=== PATIENT | male | born 1950 | race Caucasian/White ===

== ENCOUNTER 2020-03-10 08:12 | Inpatient (IN) | payer MEDICARE ==
--- NOTE | 2020-03-10 08:32 | RADIOLOGY REPORT (SQ) ---
EXAM DESCRIPTION: CT HEAD WITHOUT IMAGES COMPLETED DATE/TIME: 03/10/2020 8:22 am REASON FOR STUDY: STROKE PROTOCOL COMPARISON: None. TECHNIQUE: Axial images acquired through the brain without intravenous contrast. Images reviewed wi th bone, brain and subdural windows. Additional sagittal and coronal reconstructions were generated. Images stored on PACS. All CT scanners at this facility use dose modulation, iterative reconstruction, and/or weight based d osing when appropriate to reduce radiation dose to as low as reasonably achievable (ALARA). [facility]: Dose Right [facility]: CareDose [facility]: Dose Right [facility]: Teradose 4D [facility]: [employer] RADIATION DOSE: mGy. LIMITATIONS: None. FINDINGS: VENTRICLES: Prominent. CEREBRUM: No masses. No hemorrhage. No midline shift. Areas of low density in the white matter mos t likely due to chronic micro-vascular ischemic change. No evidence for acute infarction. CEREBELLUM: No masses. No hemorrhage. No alteration of density. No evidence for acute infarction. EXTRAAXIAL SPACES: Age-related involutional change. No fluid collections. No masses. ORBITS AND GLOBE: No intra- or extraconal masses. Normal contour of globe without masses. CALVARIUM: No fracture. PARANASAL SINUSES: No fluid or mucosal thickening. SOFT TISSUES: No mass or hematoma. OTHER: No other significant finding. IMPRESSION: CHRONIC CHANGES OF ATROPHY AND MICROVASCULAR ISCHEMIA. NO ACUTE PROCESS. EVIDENCE OF ACUTE STROKE: NO. COMMENT: Pertinent positive or negative findings of the imaging study reported as a CRITICAL EXAM [place] aguilar ESTEBAN CONNOLLY at08:25 on 03/10/2020. Category of Critical Exam: Stroke protocol. TECHNICAL DOCUMENTATION: JOB ID: [id number] Quality ID # [id number]: Final reports with documentation of one or more dose reduction techniques (e.g., Au tomated exposure control, adjustment of the mA and/or kV according to patient size, use of iterative reconstruction technique) 2010 [employer]- All Rights Reserved Reading location - IP/workstation name: [email or web address]
--- NOTE | 2020-03-10 08:33 | RADIOLOGY REPORT (SQ) ---
EXAM DESCRIPTION: CHEST SINGLE VIEW IMAGES COMPLETED DATE/TIME: 03/10/2020 8:22 am REASON FOR STUDY: STROKE COMPARISON: None. EXAM PARAMETERS: NUMBER OF VIEWS: One view. TECHNIQUE: Single frontal radiographic view of the chest acquired. RADIATION DOSE: NA LIMITATIONS: None. FINDINGS: LUNGS AND PLEURA: No opacities, masses or pneumothorax. No pleural effusion. MEDIASTINUM AND HILAR STRUCTURES: No masses. Contour normal. HEART AND VASCULAR STRUCTURES: Heart normal in size. Normal vasculature. BONES: No acute findings. HARDWARE: None in the chest. OTHER: No other significant finding. IMPRESSION: NO ACUTE RADIOGRAPHIC FINDING IN THE CHEST. TECHNICAL DOCUMENTATION: JOB ID: [id number] 2010 [employer]- All Rights Reserved Reading location - IP/workstation name: [email or web address]
--- NOTE | 2020-03-10 08:43 | EKG REPORT ---
SEVERITY:- BORDERLINE ECG - SINUS RHYTHM BORDERLINE RIGHT AXIS DEVIATION BORDERLINE T ABNORMALITIES, DIFFUSE LEADS : Confirmed by: Wendy Das MD 10-Mar-2020 08:43:06
[2020-03-10 08:44] LABS: INTERNATIONAL RATION (INR) 1.14
[2020-03-10 08:45] LABS: PARTIAL THROMBOPLASTIN TIME 34.9 SEC (23.5-35.8)
[2020-03-10 08:47] LABS: PROTHROMBIN TIME 14.7 SEC (11.4-15.4)
[2020-03-10 08:59] LABS: ABSOLUTE EOSINOPHILS # (AUTO) 0.1 10^3/uL (0.0-0.6); ABSOLUTE LYMPHOCYTES (AUTO) 1.2 10^3/uL (0.5-4.7); ABSOLUTE MONOCYTES (AUTO) 0.5 10^3/uL (0.1-1.4); BASOPHILS % (AUTO) 0.3 % (0-2); EOSINOPHILS % (AUTO) 0.6 % (0-6); HEMATOCRIT 46.3 % (37.9-51.0); HEMOGLOBIN 16.1 g/dL (13.5-17.0); LYMPHOCYTES % (AUTO) 11.3 % (13-45); MEAN CORPUSCULAR HEMOGLOBIN 28.7 pg (27.0-33.4); MEAN CORPUSCULAR HGB CONC 34.9 g/dL (32.0-36.0); MEAN CORPUSCULAR VOLUME 82 fl (80-97); MONOCYTES % (AUTO) 4.7 % (3-13); PLATELET COUNT 240 10^3/uL (150-450); RED BLOOD COUNT 5.62 10^6/uL (4.35-5.55); RED CELL DISTRIBUTION WIDTH 15.1 % (11.5-14.0); SEGMENTED NEUTROPHILS % (AUTO) 83.1 % (42-78); TOTAL CELLS COUNTED % (AUTO) 100 %; WHITE BLOOD COUNT 10.8 10^3/uL (4.0-10.5)
[2020-03-10 09:31] LABS: ALBUMIN 4.1 g/dL (3.5-5.0); ALKALINE PHOSPHATASE 66 U/L (38-126); ANION GAP 9 (5-19); ASPARTATE AMINO TRANSFERASE 51 U/L (17-59); BILIRUBIN,TOTAL 0.8 mg/dL (0.2-1.3); BLOOD UREA NITROGEN 22 mg/dL (7-20); CALCIUM 9.3 mg/dL (8.4-10.2); CARBON DIOXIDE 30 mmol/L (22-30); CHLORIDE 98 mmol/L (98-107); CREATINE KINASE 1043 U/L (55-170); GLUCOSE 270 mg/dL (75-110); POTASSIUM 4.2 mmol/L (3.6-5.0); TOTAL PROTEIN 7.1 g/dL (6.3-8.2)
[2020-03-10 09:40] LABS: CREATINE KINASE MB 7.15 ng/mL (<4.55)
[2020-03-10 09:41] LABS: TROPONIN I < 0.012 ng/mL
--- NOTE | 2020-03-10 10:22 | RADIOLOGY REPORT (SQ) ---
EXAM DESCRIPTION: CTA HEAD IMAGES COMPLETED DATE/TIME: 03/10/2020 10:04 am REASON FOR STUDY: acute stroke COMPARISON: None. TECHNIQUE: Post IV contrast scanning, thin section axial imaging through the brain to evaluate the a rterial structures. Source and MIP images are saved and reviewed on PACS. Advanced 3D imaging as volume-rendering, MIPs, SSD performed? yes All CT scanners at this facility use dose modulation, iterative reconstruction, and/or weight based d osing when appropriate to reduce radiation dose to as low as reasonably achievable (ALARA). [facility]: Dose Right [facility]: CareDose [facility]: Dose Right [facility]: Teradose 4D [facility]: [employer] CONTRAST TYPE AND DOSE: 70 mL Omnipaque 350- low osmolar. RENAL FUNCTION: BUN 22 creatinine 0.65. LIMITATIONS: None. FINDINGS: JENA OF ALVAREZ: There is focal narrowing of the proximal cavernous right internal caroti d artery as it exits the skull base. No occlusion. The anterior, middle, posterior cerebral arterie s are all patent. No evidence of aneurysm or focal stenosis. POSTERIOR CIRCULATION: The distal vertebral arteries are patent as is the basilar artery. No aneurysm . BRAIN: No gross enhancing lesions as visualized. The superior cerebral hemispheres are not included in the field of view. BONES: Intact as visualized. SINUSES: No fluid or mucosal thickening. OTHER: No other significant finding. IMPRESSION: FOCAL PLAQUE IN THE PROXIMAL CAVERNOUS RIGHT INTERNAL CAROTID ARTERY WITH LUMINAL NARROW ING BUT NO OCCLUSION. NO CTA EVIDENCE OF STENOSIS OR ANEURYSM OF THE JENA OF ALVAREZ. TECHNICAL DOCUMENTATION: JOB ID: [id number] Quality ID # [id number]: Final reports with documentation of one or more dose reduction techniques (e.g., Au tomated exposure control, adjustment of the mA and/or kV according to patient size, use of iterative reconstruction technique) 2010 [employer]- All Rights Reserved Reading location - IP/workstation name: [email or web address]
--- NOTE | 2020-03-10 10:24 | RADIOLOGY REPORT (SQ) ---
EXAM DESCRIPTION: CTA NECK IMAGES COMPLETED DATE/TIME: 03/10/2020 10:04 am REASON FOR STUDY: acute stroke COMPARISON: None. TECHNIQUE: Axial dynamic scanning technique with dynamic contrast enhancement through the extra-stock crane operator nial carotid and vertebral arteries. Multiplanar reconstruction. 3-D MIPS and Volume-rendered imag es acquired at the workstation and saved to PACS. Images are reviewed in soft tissue, bone, lung w indows. All CT scanners at this facility use dose modulation, iterative reconstruction, and/or weight based d osing when appropriate to reduce radiation dose to as low as reasonably achievable (ALARA). [facility]: Dose Right [facility]: CareDose [facility]: Dose Right [facility]: Teradose 4D [facility]: [employer] CONTRAST TYPE AND DOSE: contrast/concentration: Isovue 350.00 mg/ml; Total Contrast Delivered: 70.0 ml; Total Saline Delivered: 75.0 ml RENAL FUNCTION: BUN 22 creatinine 0.65. LIMITATIONS: None. FINDINGS: AORTIC ARCH: Normal three-vessel origin. Bilateral subclavian arteries are patent. No d issection. RIGHT CAROTIDS: Patent common, internal and external carotid arteries without suggestion of significa nt stenosis or irregular plaque. Mild calcification in the proximal internal carotid artery. No dis section. RIGHT VERTEBRAL: Patent. No dissection. LEFT CAROTIDS: Patent common, internal and external carotid arteries without suggestion of significan t stenosis or irregular plaque. Mild calcification in the proximal internal carotid artery. No diss ection. LEFT VERTEBRAL: Patent. No dissection. OTHER: No other significant finding. OTHER: 3-D reconstructions confirm findings. IMPRESSION: UNREMARKABLE CTA OF THE EXTRA-CRANIAL CAROTID AND VERTEBRAL ARTERIES. MILD CALCIFIED PL AQUE IN THE INTERNAL CAROTID ARTERIES WITH NO STENOSIS. COMMENT: Quality ID #[id number]: Measurements of distal internal carotid diameter were used as the denomina tor for stenosis measurement. TECHNICAL DOCUMENTATION: JOB ID: [id number] Quality ID # 436: Final reports with documentation of one or more dose reduction techniques (e.g., Au tomated exposure control, adjustment of the mA and/or kV according to patient size, use of iterative reconstruction technique) 2010 [employer]- All Rights Reserved Reading location - IP/workstation name: [email or web address]
[2020-03-10] MEDS ORDERED: ASPIRIN 325 MG TABLET PO ONE (10:38)
--- NOTE | 2020-03-10 10:42 | ER Document Report ---
Entered by SHAR WINKLER SCRIBE 03/10/20 0834 Acting as scribe for:ESTEBAN CONNOLLY DO ED Neuro Symptoms/Deficit - General Chief Complaint: S/S of Possible Stroke Stated Complaint: POSSIBLE STROKE Time Seen by Provider: 03/10/20 08:23 Mode of Arrival: Medic Information source: Patient, Emergency Med Personnel Cannot obtain history due to: Other - slurred speech, difficult to understand Notes: This 69 year old male patient presents to the emergency department today with complaints of a two day history of right sided weakness. The patient's last known well was 7:00 PM on 03/08/20. The patient's daughter had not heard from the patient since that evening so this morning she went to check on the patient and found him down on the floor, covered in urine. Patient has slurred speech, a right sided facial droop, and complete right sided hemiparesis. Patient denies any pain. - Related Data Allergies/Adverse Reactions: ibuprofen Allergy (Mild, Verified 03/10/20 08:32) Past Medical History - General Information source: Patient, Emergency Med Personnel - Social History Smoking Status: Smoker,Current Status Unk Frequency of alcohol use: None Drug Abuse: None Lives with: Alone Family History: Reviewed & Not Pertinent Endocrine Medical History: Reports: Hx Diabetes Mellitus Type 2 Surgical Hx: Negative Review of Systems - Review of Systems Constitutional: No symptoms reported EENT: No symptoms reported Cardiovascular: No symptoms reported Respiratory: No symptoms reported Gastrointestinal: No symptoms reported Genitourinary: No symptoms reported Male Genitourinary: No symptoms reported Musculoskeletal: No symptoms reported Skin: No symptoms reported Hematologic/Lymphatic: No symptoms reported Neurological/Psychological: See HPI, Weakness - right sided, Paralysis - right sided, Speech impairment -: Yes All other systems reviewed and negative Physical Exam - Notes Notes: Physical Exam: General: Alert, right sided hemiparesis, right sided facial droop, slurred speech. . HEENT: Normocephalic. Atraumatic. PERRL. Extraocular movements intact. Oropharynx clear. Neck: Supple. Non-tender. Respiratory: No respiratory distress. Clear and equal breath sounds bilaterally. Cardiovascular: Regular rate and rhythm. Abdominal: Normal Inspection. Non-tender. No distension. Normal Bowel Sounds. Back: No gross abnormalities. Extremities: does not move right upper or right lower extremities. Upper extremities: 5/5 left upper extremity strength. 0/5 right upper extremity strength. Lower extremities: 5/5 left lower extremity strength. 0/5 right lower extremity strength. Neurological: Right-sided hemiparesis. Slurred speech. Right sided facial droop. Alert and oriented x4. Psychological: Normal affect. Normal Mood. Skin: Warm. Dry. Normal color. Course - Re-evaluation Re-evalutation: 03/10/20 10:44 MDM 69 year old with CVA - right sided hemiparesis and speech difficulty. NIHSS 8 for me. While TPA was considered the pt is clearly out of the window for thrombolytics as his last known normal was approximately 36 hours ago. No fever or chest pain or sob. No rash. I have discussed with SAHIL Emmanuel and Dr. Faustin who has graciously agreed to see and evaluate for admission. - Laboratory Result Diagrams: 03/10/20 08:30 03/10/20 08:30 - Diagnostic Test Radiology reviewed: Reports reviewed - EKG Interpretation by Me EKG shows normal: Sinus rhythm Rate: Normal Rhythm: NSR - NSR Nl [place] [address] elevaiton or depression my interpretation. ED NIH Stroke Scale - NIH Stroke Scale *: 1. NIH scale should be completed with appropriate accompanying assessment tools. *: 2. The NIH should reflect what the patient is capable of doing and should not be coached by the clinician. 1a. Level of Consciousness: 0=Alert;keenly responsive -: 1=Drowsy -: 2=Obtunded -: 3=Coma/unresponsive or reflex to noxious stimuli. 1a. Responses: 0 1b. Orientation Questions: a. What month is it? -: b. How old are you? -: 0=Answers both questions correctly. -: 1=Answers one question correctly or patient is intubated or has orotracheal trauma. -: 2=Answers neither question correctly. 1b. Responses: 0 1c. Response to commands: a. Open and close eyes? -: b. Hod Carrier and release hand? -: Credit is given despite weakness. Demonstration of task is permitted. Substitute command if hands cannot be used. -: 0=Performs both tasks correctly -: 1=Performs one task correctly -: 2=Performs neither task correctly 1c. Responses: 0 2. Gaze: Establish eye contact and instruct patient to "Follow my finger" -: 0=Normal -: 1=Partial gaze palsy. Gaze is abnormal in one or both eyes, but where forced deviation or total gaze paresis is not present. -: 2=Forced deviation or total gaze paresis. 2. Responses: 0 3. Visual [place]: Sees fingers in all four quadrants. -: 0=No visual loss. -: 1=Partial hemianopsia. -: 2=Complete hemianopsia. -: 3=Bilateral hemianopsia (including Cortical blindness) 3. Responses: 0 4. Facial Movement: Instruct patient to: -: a. Show me your teeth -: b. Raise your eyebrows -: c. Close your eyes -: d. Smile -: 0=Normal symmetrical movement -: 1=Minor paralysis (flattened nasolabial fold, asymmetry on smiling). -: 2=Partial paralysis (total or near total paralysis of lower face). -: 3=Complete paralysis of upper and lower face 4. Responses: 1 5. Motor functions (left arm): Alternate sides and extend each arm with palms down (90 degrees if sitting or 45 degrees for supine). -: 0=No drift;limb holds for full 10 seconds. -: 1=Drift; limb holds but drifts down before full 10 seconds, but does not hit bed. -: 2=Some effort against gravity; limb cannot get to or maintain position. -: 3=No effort against gravity; limb falls. -: 4=No movement. -: UN=Amputation, joint fusion, explain in comments. 5. Responses (left arm): 0 5. Motor Functions (right arm): Alternate sides and extend each arm with palms down (90 degrees if sitting or 45 degrees for supine). -: 0=No drift;limb holds for full 10 seconds. -: 1=Drift; limb holds but drifts down before full 10 seconds, but does not hit bed. -: 2=Some effort against gravity; limb cannot get to or maintain position. -: 3=No effort against gravity; limb falls. -: 4=No movement. -: UN=Amputation, joint fusion, explain in comments. 5. Responses (right arm): 2 6. Motor Functions (left leg): With patient lying supine, alternate sides and extend each leg (30 degrees always while supine). -: 0=No drift, leg holds position for full 5 seconds -: 1=Drift; leg falls before full 5 seconds but does not hit bed. -: 2=Some effort against gravity, leg falls to bed but some effort against gravity. -: 3=No effort against gravity, leg falls to bed immediately. -: 4=No movement. -: UN=Amputation, joint fusion; explain in comments. 6. Responses (left leg): 0 6. Motor Functions (right leg): With patient lying supine, alternate sides and extend each leg (30 degrees always while supine). -: 0=No drift, leg holds position for full 5 seconds -: 1=Drift; leg falls before full 5 seconds but does not hit bed. -: 2=Some effort against gravity, leg falls to bed but some effort against gravity. -: 3=No effort against gravity, leg falls to bed immediately. -: 4=No movement. -: UN=Amputation, joint fusion; explain in comments. 6. Responses (right leg): 2 7. Limb Ataxia: With eyes open instruct patient to: -: a. "Touch your finger to your nose". -: b. "Touch your heel to your cifuentes" -: 0=Absent -: 1=Present in one limb. -: 2=Present in two limbs. -: UN=Amputation or joint fusion; explain in comments. 7. Responses: 2 8. Sensory: Test sensation using pinprick or noxious stimuli. Test as many body parts as possible. -: 0=Normal;no sensory loss -: 1=Mile to moderate sensory loss (patient feels pin prick but is less sharp on affected side). -: 2=Severe or total sensory loss. 8. Responses: 0 9. Best Language: Instruct patient to: -: a. "Describe what you see in this picture." -: b. "Name the items in this picture." -: c. "Read these sentences." -: 0=No aphasia, normal -: 1=Mild to moderate aphasia. -: 2=Severe aphasia -: 3=Mute, global aphasia, no usable speech or auditory comprehension. 9. Responses: 0 10. Articulation, Dysarthia: Instruct patient to: -: "Read these words" or "Repeat these words" -: 0=Normal -: 1=Mild to moderate; patient may slur some words but can be understood without difficulty. -: 2=Severe; patients speech so slurred as to be unintelligible in the absence of dysphasia. -: UN=Intubated or other physical barrier, explain in comments. 10. Responses: 1 11. Extinction or inattention: 0=No abnormality -: 1= Visual, tactile, auditory, spatial, or personal inattention or extinction to bilateral simulation in one or the sensory modalities. -: 2=Profound jules-inattention or jules-inattention to more than one modality; does not recognize own hand. 11. Responses: 0 Total Score: 8 Discharge - Discharge Clinical Impression: Acute CVA (cerebrovascular accident) Hypertension Qualifiers: Hypertension type: unspecified Qualified Code(s): I10 - Essential (primary) hypertension Condition: Fair Disposition: ADMITTED INPATIENT Admitting Provider: Dr. Faustin Unit Admitted: Telemetry I personally performed the services described in the documentation, reviewed and edited the documentation which was dictated to the scribe in my presence, and it accurately records my words and actions.
[2020-03-10] MEDS ORDERED: ONDANSETRON HCL INJ/PF 4 MG/2 ML SDV IV PRN (15:37)
[2020-03-10] MEDS ORDERED: ONDANSETRON 4 MG TAB.RAPDIS PO PRN (15:37)
[2020-03-10] MEDS ORDERED: ACETAMINOPHEN 325 MG TABLET PO PRN (15:37)
[2020-03-10] MEDS ORDERED: GLUCAGON,HUMAN RECOMB 1 MG INJ IM PRN (16:02)
[2020-03-10] MEDS ORDERED: DEXTROSE 40% GEL 15 GM TUBE PO PRN ×2 (16:02)
[2020-03-10] MEDS ORDERED: DEXTROSE 50%-WATER 25 GM/50 ML DISP.SYRIN IV PRN ×2 (16:02)
--- NOTE | 2020-03-10 16:09 | PDOC H&P ---
History of Present Illness Admission Date/PCP: 03/10/20 10:58 History of Present Illness: REN GARCIA is a 69 year old male with past medical history as below who presented with a 2-day history of progressive right-sided numbness and weakness which began at his home on Saturday per patient, admitted on today. Per ED, NIH stroke scale score of 6 on admission. Patient states he does not take daily aspirin and is not on a statin. He denies any history of previous stroke. Patient was found down after a fall on his floor for an undetermined period of time, noted to be in rhabdomyolysis with CK over 1000 and negative troponin. Per patient, he has no known medical problems other than T2DM for which she takes only metformin. He is every day 1 to 2 pack/day smoker and has done so for many years. CTA head/neck did not show any significant acute findings that would necessitate transfer or prompt intervention from a neuroradiologist according to ED. CTA head did show focal plaque in the proximal cavernous right internal carotid artery with some narrowing but no occlusion. CTA neck showed a calcified mild plaque in the bilateral internal carotid arteries without st enoses. Multiple therapy modalities consulted on admission. Patient admitted for further work-up and evaluation of likely stroke. Past Medical History Cardiac Medical History: Reports: Hypertension Endocrine Medical History: Reports: Diabetes Mellitus Type 2 GI Medical History: Reports: None Past Surgical History Past Surgical History: Reports: None Social History Information Source: Patient, Emergency Med Personnel, [facility] Records Lives with: Alone Smoking Status: Current Every Day Smoker Cigarettes Packs Per Day: 2 Electronic Cigarette use?: No Frequency of Alcohol Use: None Drugs: None - Advance Directive Resuscitation Status: Full Code Surrogate healthcare decision maker:: Sister Family History Family History: Reviewed & Not Pertinent Parental Family History Reviewed: Yes Children Family History Reviewed: Yes Sibling(s) Family History Reviewed.: Yes Medication/Allergy Allergies/Adverse Reactions: No Known Allergies Allergy (Unverified 03/10/20 12:32) Review of Systems All systems: reviewed and no additional remarkable complaints except as stated - Review of systems as noted per HPI, otherwise negative Neurological: PRESENT: abnormal speech, focal weakness, lack of coordination, numbness, weakness Physical Exam Vital Signs: Temp Pulse Resp BP Pulse Ox 97.8 F 60 15 162/69 H 96 03/10/20 12:38 03/10/20 14:00 03/10/20 12:49 03/10/20 12:49 03/10/20 12:49 Intake & Output 03/09/20 03/10/20 03/11/20 06:59 06:59 06:59 Weight 52.1 kg General appearance: PRESENT: no acute distress, well-developed, well-nourished Head exam: PRESENT: atraumatic, normocephalic Eye exam: PRESENT: conjunctiva pink Mouth exam: PRESENT: moist Respiratory exam: PRESENT: clear to auscultation aldair. ABSENT: rales, rhonchi, wheezes Cardiovascular exam: PRESENT: bradycardia GI/Abdominal exam: PRESENT: normal bowel sounds, soft. ABSENT: distended, guarding, mass, organolmegaly, rebound, tenderness Rectal exam: PRESENT: deferred Neurological exam: PRESENT: alert, awake, oriented to person, oriented to place, motor sensory deficit - Strength 2/5 RUE both distal and proximal, strength 2/5 RLE distal and proximal; strength 5/5 LUE and LLE. ABSENT: CN II-XII grossly intact - Right facial droop primarily around the mouth Psychiatric exam: PRESENT: appropriate affect, normal mood Skin exam: PRESENT: dry, intact, warm Results Laboratory Results: 03/10/20 08:30 03/10/20 08:30 03/10/20 03/10/20 03/10/20 08:30 08:30 08:30 WBC 10.8 H RBC 5.62 H Hgb 16.1 Hct 46.3 MCV 82 MCH 28.7 MCHC 34.9 RDW 15.1 H Plt Count 240 Seg Neutrophils % 83.1 H Sodium 136.6 L Potassium 4.2 Chloride 98 Carbon Dioxide 30 Anion Gap 9 BUN 22 H Creatinine 0.65 Est GFR ( Amer) > 60 Glucose 270 H Calcium 9.3 Total Bilirubin 0.8 AST 51 Alkaline Phosphatase 66 Total Protein 7.1 Albumin 4.1 TSH 2.02 03/10/20 03/10/20 08:30 08:30 Creatine Kinase 1043 H CK-MB (CK-2) 7.15 H Troponin I < 0.012 Impressions: Chest X-Ray 03/10/20 00:00 IMPRESSION: NO ACUTE RADIOGRAPHIC FINDING IN THE CHEST. Head CT 03/10/20 00:00 IMPRESSION: CHRONIC CHANGES OF ATROPHY AND MICROVASCULAR ISCHEMIA. NO ACUTE PROCESS. EVIDENCE OF ACUTE STROKE: NO. Head CTA 03/10/20 08:43 IMPRESSION: FOCAL PLAQUE IN THE PROXIMAL CAVERNOUS RIGHT INTERNAL CAROTID ARTERY WITH LUMINAL NARROWING BUT NO OCCLUSION. NO CTA EVIDENCE OF STENOSIS OR ANEURYSM OF THE [place]. Neck CTA 03/10/20 08:43 IMPRESSION: UNREMARKABLE CTA OF THE EXTRA-CRANIAL CAROTID AND VERTEBRAL ARTERIES. MILD CALCIFIED PLAQUE IN THE INTERNAL CAROTID ARTERIES WITH NO STENOSIS. Assessment and Plan - Diagnosis (1) Acute CVA (cerebrovascular accident) Is this a current diagnosis for this admission?: Yes Plan: 2-day history of progressive right upper and lower extremity weakness and dysarthria CTA head and neck showed bilateral carotid artery stenosis Aspirin statin started Echocardiogram PT/OT/ST Can have cardiac diet if he passes bedside swallow Every 4 hours neuro checks Permissive hypertension x48 hours or until stroke is ruled out which ever comes first, do not treat high blood pressure unless greater than 220/110 Carotid artery Doppler bilaterally to evaluate flow Suspect patient will need SNF at discharge given debility (2) T2DM (type 2 diabetes mellitus) Qualifiers: Diabetes mellitus extermination inspector insulin use: without extermination inspector use Diabetes brynn litus complication status: with circulatory complication Diabetes mellitus complication detail: with other circulatory complications Qualified Code(s): E11.59 - Type 2 diabetes mellitus with other circulatory complications Is this a current diagnosis for this admission?: Yes Plan: Per patient, only takes metformin at home, hold this inpatient Accu-Cheks, slight scale insulin (3) Rhabdomyolysis Is this a current diagnosis for this admission?: Yes Plan: Due to falling on floor and lying there for Appear to time CK on admission over 1000 IV fluids, can stop these if blood pressure begins rising abruptly and renal function is stable Trend BMP and monitor renal function closely (4) Tobacco abuse Is this a current diagnosis for this admission?: Yes Plan: 2 pack/day chronic smoker Counseled to quit (5) Fall at home Is this a current diagnosis for this admission?: Yes Plan: No acute findings on CTA head neck (6) Carotid artery stenosis Is this a current diagnosis for this admission?: Yes Plan: May benefit from vascular surgery evaluation in the future, does not appear to have a specific stenotic lesion that could be operated on currently (7) Hypertension Qualifiers: Hypertension type: unspecified Qualified Code(s): I10 - Essential (primary) hypertension Is this a current diagnosis for this admission?: Yes Plan: Not on any meds for this at home per patient Unclear when patient actually had the stroke as he was found down at home May be safe to stop permissive hypertension given it may be over 48 hours already from the time he had his stroke Gradual blood pressure control can likely be safely started tomorrow - Time Time Spent with patient: 35 or more minutes Smoking Cessation Education: 3 to 10 minutes Medications reviewed and adjusted accordingly: Yes Anticipated discharge: SNF Within: within 72 hours - Inpatient Certification Based on my medical assessment, after consideration of the patient's comorbidities, presenting symptoms, or acuity I expect that the services needed warrant INPATIENT care.: Yes I certify that my determination is in accordance with my understanding of Medicare's requirements for reasonable and necessary INPATIENT services [42 CFR 412.3e].: Yes Medical Necessity: Significant Comorbidiites Make Outpatient Treatment Too Risky, Need Close Monitoring Due to Risk of Patient Decompensation, Need For IV Fluids, Risk of Complication if Not Cared For in Hospital
--- NOTE | 2020-03-10 16:10 | ADVANCED CARE ---
- Diagnosis (1) Acute CVA (cerebrovascular accident) Diagnosis Current: Yes (2) T2DM (type 2 diabetes mellitus) Diagnosis Current: Yes (3) Rhabdomyolysis Diagnosis Current: Yes (4) Tobacco abuse Diagnosis Current: Yes (5) Fall at home Diagnosis Current: Yes (6) Carotid artery stenosis Diagnosis Current: Yes (7) Hypertension Diagnosis Current: Yes Attendance: Patient Resuscitation Status: Full Code Discussion: All aspects of code status discussed with patient/POA including cardioversion, chest compressions, and intubation and the patient/POA indicated they wish to be full code. MPOA is designated as: DaughterEly Time Spent: 17 minutes
[2020-03-10] MEDS: RINGERS SOLUTION,LACTATED 1,000 ML IV PRN (16:18)
--- NOTE | 2020-03-10 20:09 | RADIOLOGY REPORT (SQ) ---
EXAM DESCRIPTION: CAROTID DOPPLER IMAGES COMPLETED DATE/TIME: 03/10/2020 7:20 pm REASON FOR STUDY: cva COMPARISON: None. TECHNIQUE: Grayscale ultrasound, Doppler velocity and spectra, and color Doppler images acquired of the extra-cranial carotid and vertebral arteries. Images stored on PACS. LIMITATIONS: None. FINDINGS: RIGHT CAROTID CCA Velocities: Within normal limits. ICA Velocities Peak systolic 0.44 m/s. End diastolic 0.07 m/s. Proximal ICA/CCA peak systolic ratio normal. Spectra normal. No significant plaque. LEFT CAROTID CCA Velocities: Within normal limits. ICA Velocities Peak systolic 0.52 m/s. End diastolic 0.11 m/s. Proximal ICA/CCA peak systolic ratio normal. Spectra normal. No significant plaque. VERTEBRAL ARTERIES: Antegrade flow. Normal waveforms. SUBCLAVIAN ARTERIES: Not evaluated OTHER: No other significant finding. IMPRESSION: NO HEMODYNAMICALLY SIGNIFICANT STENOSIS. COMMENT: Quality ID #[id number]: Velocity criteria are extrapolated from the diameter data as defined by t he Society of Radiologists in Ultrasound Consensus Conference. Radiology 2003: 229; 340-346. TECHNICAL DOCUMENTATION: JOB ID: [id number] 2010 [employer]- All Rights Reserved Reading location - IP/workstation name: [id number]
--- NOTE | 2020-03-10 21:30 | XCELERA REPORT ---
[address] [address] Transthoracic Echocardiogram Report Name: REN GARCIA Age: 69 yrs Gender: Male : 1950 Patient Status: Inpatient Patient Location: [address] [place] [address] Study Date: 03/10/2020 05:41 PM Height: 66 in Weight: 114 lb BSA: 1.6 m2 Procedure: A two-dimensional transthoracic echocardiogram with color flow and Doppler was performed. Study Quality: Fair. Reason For Study: cva History: CVA. Ordering Physician: AGUEDA GELLER Performed By: Martine Curtis Interpretation Summary There is no obvious cardiac source of embolus noted on this transthoracic echocardiogram. Follow-up with a STANLEY is suggested if cardiac source is still suspected. The left ventricle is normal in size. There is normal left ventricular wall thickness. LV EF is > THAN 65% Left ventricular systolic function is normal. Doppler measurements suggest impaired left ventricular relaxation, which is associated with grade I/IV or mild diastolic dysfunction The left ventricular wall motion is normal. There is no thrombus. nO asd,vsd,OR pfo SEEN The right ventricle is normal in size and function. There is no evidence of mitral valve prolapse. There is no vegetation seen on the mitral valve. There is no mitral valve stenosis. There is no mitral regurgitation noted. There is no aortic valvular vegetation. There is no aortic valve stenosis There is no LVOT obstruction. No aortic regurgitation is present. There is no tricuspid stenosis. There is a trace amount of tricuspid regurgitation Tricuspid regurgitation jet envelope not well defined to measure RV systolic pressure accurately. There is no pulmonic valvular stenosis. There is no pulmonic valvular regurgitation. The aortic root is normal size. The inferior vena cava appeared normal and decreased > 50% with respiration (RAP 5-10 mmHg) There is no obvious cardiac source of embolus noted on this transthoracic echocardiogram. Follow-up with a STANLEY is suggested if cardiac source is still suspected MMode/2D Measurements & Calculations RVDd: 1.8 cm LVIDd: 3.9 cm FS: 41.7 % Ao root diam: 2.4 cm IVSd: 0.61 cm LVIDs: 2.3 cm EDV(Teich): 67.6 ml Ao root area: 4.5 cm2 LVPWd: 0.96 cm ESV(Teich): 18.1 ml LA dimension: 2.3 cm EF(Teich): 73.3 % Doppler Measurements & Calculations MV E max raoul: MV P1/2t max raoul: Ao V2 max: LV V1 max P.1 cm/sec 70.0 cm/sec 115.5 cm/sec 2.1 mmHg MV A max raoul: MV P1/2t: 72.7 msec Ao max PG: LV V1 max: 83.7 cm/sec MVA(P1/2t): 3.0 cm2 5.3 mmHg 72.3 cm/sec MV E/A: 0.66 MV dec slope: 281.9 cm/sec2 MV dec time: 0.26 sec PA V2 max: MV P1/2t-pr_phl: 76.1 cm/sec 72.7 msec PA max P.3 mmHg Left Ventricle The left ventricle is normal in size. There is normal left ventricular wall thickness. LV EF is > THAN 65%. Left ventricular systolic function is normal. Doppler measurements suggest impaired left ventricular relaxation, which is associated with grade I/IV or mild diastolic dysfunction. The left ventricular wall motion is normal. There is no thrombus. nO asd,vsd,OR pfo SEEN. Right Ventricle The right ventricle is normal in size and function. Atria The right atrium is normal. The left atrial size is normal. Mitral Valve There is no evidence of mitral valve prolapse. There is no vegetation seen on the mitral valve. There is no mitral valve stenosis. There is no mitral regurgitation noted. Aortic Valve There is no aortic valvular vegetation. There is no aortic valve stenosis. There is no LVOT obstruction. No aortic regurgitation is present. Tricuspid Valve There is no tricuspid stenosis. There is a trace amount of tricuspid regurgitation. Tricuspid regurgitation jet envelope not well defined to measure RV systolic pressure accurately. Pulmonic Valve There is no pulmonic valvular stenosis. There is no pulmonic valvular regurgitation. Great Vessels The aortic root is normal size. The inferior vena cava appeared normal and decreased > 50% with respiration (RAP 5-10 mmHg). : AGUEDA GELLER Lakshmi
--- NOTE | 2020-03-10 22:22 | RADIOLOGY REPORT (SQ) ---
MR BRAIN WITHOUT IV CONTRAST EXAM DATE: 03/10/2020 12:00 AM CDT HISTORY: CVA. COMPARISON: None. TECHNIQUE: Multisequence, multiplanar MR imaging of the brain was performed without the administration of intravenous gadolinium. FINDINGS: There are areas of restricted diffusion in the right frontal and parietal periventricular white matter as well as within the bilateral basal ganglia consistent with acute lacunar infarcts. There is also restricted diffusion in the cerebellar vermis. Scattered areas of T2/FLAIR hyperintense foci are seen in the supratentorial white matter, likely representing chronic microvascular ischemia. There is no intracranial hemorrhage, extra-axial fluid collection, or mass. The orbits are unremarkable. The calvarium and skull base appear unremarkable. The paranasal sinuses are clear. IMPRESSION: 1. Acute lacunar infarcts in the right frontoparietal white matter, bilateral basal ganglia, and cerebellar vermis. Given the bilaterality and multiplicity, these may be embolic in nature. 2. Chronic microvascular ischemic disease.
[2020-03-10] MEDS: ATORVASTATIN CALCIUM 40 MG TABLET PO SCH (22:28)
[2020-03-11] MEDS: INSULIN LISPRO 100 UNIT/ML 3 ML VIAL SUBCUT SCH ×4 (00:05→18:23)
[2020-03-11] MEDS: RINGERS SOLUTION,LACTATED 1,000 ML IV PRN ×2 (04:45→15:03)
[2020-03-11 05:34] LABS: ABSOLUTE EOSINOPHILS # (AUTO) 0.1 10^3/uL (0.0-0.6); ABSOLUTE LYMPHOCYTES (AUTO) 1.1 10^3/uL (0.5-4.7); ABSOLUTE MONOCYTES (AUTO) 0.4 10^3/uL (0.1-1.4); ABSOLUTE NEUT (AUTO) 8.4 10^3/uL (1.7-8.2); BASOPHILS % (AUTO) 0.3 % (0-2); EOSINOPHILS % (AUTO) 0.7 % (0-6); HEMATOCRIT 40.9 % (37.9-51.0); HEMOGLOBIN 14.3 g/dL (13.5-17.0); MEAN CORPUSCULAR HEMOGLOBIN 28.8 pg (27.0-33.4); MEAN CORPUSCULAR VOLUME 82 fl (80-97); MONOCYTES % (AUTO) 4.1 % (3-13); PLATELET COUNT 204 10^3/uL (150-450); RED BLOOD COUNT 4.97 10^6/uL (4.35-5.55); RED CELL DISTRIBUTION WIDTH 15.1 % (11.5-14.0); SEGMENTED NEUTROPHILS % (AUTO) 83.9 % (42-78); TOTAL CELLS COUNTED % (AUTO) 100 %
[2020-03-11 05:50] LABS: ALBUMIN 3.3 g/dL (3.5-5.0); ALKALINE PHOSPHATASE 53 U/L (38-126); ANION GAP 8 (5-19); ASPARTATE AMINO TRANSFERASE 29 U/L (17-59); BILIRUBIN,TOTAL 0.7 mg/dL (0.2-1.3); BLOOD UREA NITROGEN 26 mg/dL (7-20); CALCIUM 8.7 mg/dL (8.4-10.2); CARBON DIOXIDE 27 mmol/L (22-30); CHLORIDE 101 mmol/L (98-107); CHOLESTEROL 122.46 mg/dL (0-200); GLUCOSE 250 mg/dL (75-110); PHOSPHORUS 3.4 mg/dL (2.5-4.5); POTASSIUM 3.7 mmol/L (3.6-5.0); TOTAL PROTEIN 6.1 g/dL (6.3-8.2); TRIGLYCERIDES 86 mg/dL (<150)
[2020-03-11 06:01] LABS: DIRECT LDL 86 mg/dL (<100)
[2020-03-11] MEDS: ASPIRIN 325 MG TABLET PO SCH (10:36)
[2020-03-11] MEDS: DOCUSATE SODIUM 100 MG CAPSULE PO SCH (10:36)
[2020-03-11] MEDS: ENOXAPARIN SODIUM INJ 40 MG/0.4 ML DISP.SYRIN SUBCUT SCH (10:40)
[2020-03-11 11:23] LABS: APPEARANCE,URINE SLIGHTLY-CLOUDY; BILIRUBIN,URINE NEGATIVE (NEGATIVE); COLOR,URINE YELLOW; GLUCOSE, URINE >=500 mg/dL (NEGATIVE); KETONES,URINE 80 mg/dL (NEGATIVE); LEUKOCYTE ESTERASE,URINE NEGATIVE (NEGATIVE); NITRITE,URINE NEGATIVE (NEGATIVE); PROTEIN,URINE 30 mg/dL (NEGATIVE); URINE SPECIFIC GRAVITY 1.036; UROBILINOGEN,URINE NEGATIVE mg/dL (<2.0)
--- NOTE | 2020-03-11 13:36 | PDOC PROGRESS REPORT ---
Subjective Progress Note for:: 03/11/20 Subjective:: Patient has unchanged neurologic symptoms today with complete paralysis of his right upper and lower extremities. He still has dysarthria and right facial droop. His MRI showed multiple small strokes bilaterally which raises suspicion of embolic source. His carotid arteries are patent and his echocardiogram did not show acute findings. I discussed all findings with patient in his room today. Otherwise, patient has no new complaints. Reason For Visit: ACUTE CVA Physical Exam Vital Signs: Temp Pulse Resp BP Pulse Ox 97.5 F 60 16 94/62 L 98 03/11/20 11:48 03/11/20 11:48 03/11/20 11:48 03/11/20 11:48 03/11/20 11:48 Intake & Output 03/10/20 03/11/20 03/12/20 06:59 06:59 06:59 Intake Total 1000 Output Total 230 Balance 1000 -230 Weight 50.3 kg General appearance: PRESENT: no acute distress, well-developed, well-nourished Head exam: PRESENT: atraumatic, normocephalic Eye exam: PRESENT: conjunctiva pink Mouth exam: PRESENT: moist Respiratory exam: PRESENT: clear to auscultation aldair. ABSENT: rales, rhonchi, wheezes Cardiovascular exam: PRESENT: RRR. ABSENT: diastolic murmur, rubs, systolic murmur GI/Abdominal exam: PRESENT: normal bowel sounds, soft. ABSENT: distended, guarding, mass, organolmegaly, rebound, tenderness Rectal exam: PRESENT: deferred Neurological exam: PRESENT: alert, awake, oriented to person, oriented to place, oriented to time, oriented to situation, motor sensory deficit - 0/5 strength RUE and RLE proximally and distally, strength 5/5 LUE and LLE; right facial droop as before. ABSENT: CN II-XII grossly intact Results Laboratory Results: 03/11/20 05:14 03/11/20 05:14 03/11/20 03/11/20 03/11/20 05:14 05:14 05:14 WBC 10.0 RBC 4.97 Hgb 14.3 Hct 40.9 MCV 82 MCH 28.8 MCHC 35.0 RDW 15.1 H Plt Count 204 Seg Neutrophils % 83.9 H Sodium 135.5 L Potassium 3.7 Chloride 101 Carbon Dioxide 27 Anion Gap 8 BUN 26 H Creatinine 0.66 Est GFR ( Amer) > 60 Glucose 250 H Calcium 8.7 Phosphorus 3.4 Magnesium 2.0 Total Bilirubin 0.7 AST 29 Alkaline Phosphatase 53 Total Protein 6.1 L Albumin 3.3 L Triglycerides 86 Cholesterol 122.46 LDL Cholesterol Direct 86 VLDL Cholesterol 17.0 HDL Cholesterol 32 L TSH 0.38 L Free T4 Urine Color Urine Appearance Urine pH Ur Specific [place] Urine Protein Urine Glucose (UA) Urine Ketones Urine Blood Urine Nitrite Ur Leukocyte Esterase Urine WBC (Auto) Urine RBC (Auto) 03/11/20 03/11/20 05:14 11:08 WBC RBC Hgb Hct MCV MCH MCHC RDW Plt Count Seg Neutrophils % Sodium Potassium Chloride Carbon Dioxide Anion Gap BUN Creatinine Est GFR ( Amer) Glucose Calcium Phosphorus Magnesium Total Bilirubin AST Alkaline Phosphatase Total Protein Albumin Triglycerides Cholesterol LDL Cholesterol Direct VLDL Cholesterol HDL Cholesterol TSH Free T4 1.11 Urine Color YELLOW Urine Appearance SLIGHTLY-CLOUDY Urine pH 5.0 Ur Specific [place] 1.036 Urine Protein 30 H Urine Glucose (UA) >=500 H Urine Ketones 80 H Urine Blood NEGATIVE Urine Nitrite NEGATIVE Ur Leukocyte Esterase NEGATIVE Urine WBC (Auto) 1 Urine RBC (Auto) 1 03/10/20 03/10/20 03/11/20 08:30 08:30 05:14 Creatine Kinase 1043 H 265 H CK-MB (CK-2) 7.15 H Troponin I < 0.012 Impressions: Carotid Doppler Study 03/10/20 00:00 IMPRESSION: NO HEMODYNAMICALLY SIGNIFICANT STENOSIS. Chest X-Ray 03/10/20 00:00 IMPRESSION: NO ACUTE RADIOGRAPHIC FINDING IN THE CHEST. Head CT 03/10/20 00:00 IMPRESSION: CHRONIC CHANGES OF ATROPHY AND MICROVASCULAR ISCHEMIA. NO ACUTE PROCESS. EVIDENCE OF ACUTE STROKE: NO. Head MRI 03/10/20 00:00 IMPRESSION: 1. Acute lacunar infarcts in the right frontoparietal white matter, bilateral basal ganglia, and cerebellar vermis. Given the bilaterality and multiplicity, these may be embolic in nature. 2. Chronic microvascular ischemic disease. Head CTA 03/10/20 08:43 IMPRESSION: FOCAL PLAQUE IN THE PROXIMAL CAVERNOUS RIGHT INTERNAL CAROTID ARTERY WITH LUMINAL NARROWING BUT NO OCCLUSION. NO CTA EVIDENCE OF STENOSIS OR ANEURYSM OF THE [place] OF [place]. Neck CTA 03/10/20 08:43 IMPRESSION: UNREMARKABLE CTA OF THE EXTRA-CRANIAL CAROTID AND VERTEBRAL ARTERIES. MILD CALCIFIED PLAQUE IN THE INTERNAL CAROTID ARTERIES WITH NO STENOSIS. Assessment and Plan - Diagnosis (1) Acute CVA (cerebrovascular accident) Is this a current diagnosis for this admission?: Yes Plan: 2-day history of progressive right upper and lower extremity weakness and dysarthria CTA head and neck showed bilateral carotid artery stenosis Aspirin statin started Echocardiogram showed normal systolic function with EF 65%, mild diastolic dysfunction, no thrombus but STANLEY is recommended Unable to get STANLEY as this procedure is not being done at this facility due to coronavirus and staffing restrictions PT/OT/ST Can have cardiac diet if he passes bedside swallow Every 4 hours neuro checks Permissive hypertension x48 hours or until stroke is ruled out which ever comes first, do not treat high blood pressure unless greater than 220/110 Carotid artery Doppler bilaterally to evaluate flow; no significant stenoses noted Suspect patient will need SNF at discharge given debility (2) T2DM (type 2 diabetes mellitus) Qualifiers: Diabetes mellitus long term care administrator insulin use: without residential use Diabetes mellitus complication status: with circulatory complication Diabetes mellitus complication detail: with other circulatory complications Qualified Code(s): E11.59 - Type 2 diabetes mellitus with other circulatory complications Is this a current diagnosis for this admission?: Yes Plan: Per patient, only takes metformin at home, hold this inpatient Accu-Cheks, slight scale insulin A1c 9.6, poorly controlled (3) Rhabdomyolysis Is this a current diagnosis for this admission?: Yes Plan: Due to falling on floor and lying there for Appear to time CK on admission over 1000 IV fluids, can stop these if blood pressure begins rising abruptly and renal function is stable Trend BMP and monitor renal function closely CK downtrending (4) Tobacco abuse Is this a current diagnosis for this admission?: Yes (5) Fall at home Is this a current diagnosis for this admission?: Yes (6) Carotid artery stenosis Is this a current diagnosis for this admission?: Yes (7) Hypertension Qualifiers: Hypertension type: unspecified Qualified Code(s): I10 - Essential (primary) hypertension Is this a current diagnosis for this admission?: Yes - Time Time Spent with patient: 25-34 minutes Medications reviewed and adjusted accordingly: Yes Anticipated discharge: SNF Within: within 72 hours - Inpatient Certification Based on my medical assessment, after consideration of the patient's comorbidities, presenting symptoms, or acuity I expect that the services needed warrant INPATIENT care.: Yes I certify that my determination is in accordance with my understanding of Medicare's requirements for reasonable and necessary INPATIENT services [42 CFR 412.3e].: Yes Medical Necessity: Significant Comorbidiites Make Outpatient Treatment Too Risky, Need Close Monitoring Due to Risk of Patient Decompensation, Risk of Complication if Not Cared For in Hospital, Risk of Diagnosis Which Will Require Inpatient Eval/Care/Monitoring
[2020-03-11] MEDS: ATORVASTATIN CALCIUM 40 MG TABLET PO SCH (23:21)
[2020-03-12] MEDS: INSULIN LISPRO 100 UNIT/ML 3 ML VIAL SUBCUT SCH ×5 (00:15→23:52)
[2020-03-12] MEDS: RINGERS SOLUTION,LACTATED 1,000 ML IV PRN ×3 (01:03→20:52)
--- NOTE | 2020-03-12 08:53 | PDOC PROGRESS REPORT ---
Subjective Progress Note for:: 03/12/20 Subjective:: 69 year old male with past medical history as below who presented with a 2-day history of progressive right-sided numbness and weakness which began at his home on Saturday per patient, admitted on today. Per ED, NIH stroke scale score of 6 on admission. Patient states he does not take daily aspirin and is not on a statin. He denies any history of previous stroke. Patient was found down after a fall on his floor for an undetermined period of time, noted to be in rhabdomyolysis with CK over 1000 and negative troponin. Per patient, he has no known medical problems other than T2DM for which she takes only metformin. He is every day 1 to 2 pack/day smoker and has done so for many years. CTA head/neck did not show any significant acute findings that would necessitate transfer or prompt intervention from a neuroradiologist according to ED. CTA h ead did show focal plaque in the proximal cavernous right internal carotid artery with some narrowing but no occlusion. CTA neck showed a calcified mild plaque in the bilateral internal carotid arteries without stenoses. Multiple therapy modalities consulted on admission. Patient admitted for further work-up and evaluation of likely stroke. 03/11/20-Patient has unchanged neurologic symptoms today with complete paralysis of his right upper and lower extremities. He still has dysarthria and right facial droop. His MRI showed multiple small strokes bilaterally which raises suspicion of embolic source. His carotid arteries are patent and his echocardiogram did not show acute findings. I discussed all findings with patient in his room today. Otherwise, patient has no new complaints. 03/12/20-no acute events in the last 24 hrs, pt/ot on case.. needs snf placement Reason For Visit: ACUTE CVA Physical Exam Vital Signs: Temp Pulse Resp BP Pulse Ox 98.1 F 78 18 100/58 L 94 03/12/20 07:51 03/12/20 08:00 03/12/20 08:00 03/12/20 08:00 03/12/20 08:00 Intake & Output 03/11/20 03/12/20 03/13/20 06:59 06:59 06:59 Intake Total 1000 2000 Output Total 955 Balance 1000 1045 Weight 50.3 kg 59.2 kg General appearance: PRESENT: no acute distress Head exam: PRESENT: atraumatic Eye exam: PRESENT: PERRLA Mouth exam: PRESENT: neck supple Teeth exam: PRESENT: poor dentation Neck exam: ABSENT: carotid bruit, JVD, lymphadenopathy, thyromegaly Respiratory exam: PRESENT: clear to auscultation aldair. ABSENT: rales, rhonchi, wheezes Cardiovascular exam: PRESENT: RRR. ABSENT: diastolic murmur, rubs, systolic murmur Pulses: PRESENT: normal dorsalis pedis pul GI/Abdominal exam: PRESENT: normal bowel sounds, soft. ABSENT: distended, guarding, mass, organolmegaly, rebound, tenderness Rectal exam: PRESENT: deferred Extremities exam: PRESENT: full ROM. ABSENT: calf tenderness, clubbing, pedal edema Neurological exam: PRESENT: alert, altered, awake, oriented to person, oriented to place - Complete paralysis of the right upper and right lower extremity., other Skin exam: PRESENT: dry, intact, warm. ABSENT: cyanosis, rash Results Laboratory Results: 03/11/20 05:14 03/11/20 05:14 03/11/20 03/11/20 05:14 11:08 Free T4 1.11 Urine Color YELLOW Urine Appearance SLIGHTLY-CLOUDY Urine pH 5.0 Ur Specific Exline 1.036 Urine Protein 30 H Urine Glucose (UA) >=500 H Urine Ketones 80 H Urine Blood NEGATIVE Urine Nitrite NEGATIVE Ur Leukocyte Esterase NEGATIVE Urine WBC (Auto) 1 Urine RBC (Auto) 1 03/10/20 03/10/20 03/11/20 08:30 08:30 05:14 Creatine Kinase 1043 H 265 H CK-MB (CK-2) 7.15 H Troponin I < 0.012 Impressions: Carotid Doppler Study 03/10/20 00:00 IMPRESSION: NO HEMODYNAMICALLY SIGNIFICANT STENOSIS. Chest X-Ray 03/10/20 00:00 IMPRESSION: NO ACUTE RADIOGRAPHIC FINDING IN THE CHEST. Head CT 03/10/20 00:00 IMPRESSION: CHRONIC CHANGES OF ATROPHY AND MICROVASCULAR ISCHEMIA. NO ACUTE PROCESS. EVIDENCE OF ACUTE STROKE: NO. Head MRI 03/10/20 00:00 IMPRESSION: 1. Acute lacunar infarcts in the right frontoparietal white matter, bilateral basal ganglia, and cerebellar vermis. Given the bilaterality and multiplicity, these may be embolic in nature. 2. Chronic microvascular ischemic disease. Head CTA 03/10/20 08:43 IMPRESSION: FOCAL PLAQUE IN THE PROXIMAL CAVERNOUS RIGHT INTERNAL CAROTID A RTERY WITH LUMINAL NARROWING BUT NO OCCLUSION. NO CTA EVIDENCE OF STENOSIS OR ANEURYSM OF THE [place] OF [place]. Neck CTA 03/10/20 08:43 IMPRESSION: UNREMARKABLE CTA OF THE EXTRA-CRANIAL CAROTID AND VERTEBRAL ARTERIES. MILD CALCIFIED PLAQUE IN THE INTERNAL CAROTID ARTERIES WITH NO STENOSIS. Assessment and Plan - Diagnosis (1) Acute CVA (cerebrovascular accident) Is this a current diagnosis for this admission?: Yes Plan: 2-day history of progressive right upper and lower extremity weakness and dysarthria CTA head and neck showed bilateral carotid artery stenosis Aspirin statin started Echocardiogram showed normal systolic function with EF 65%, mild diastolic dysfunction, no thrombus but STANLEY is recommended Unable to get STANLEY as this procedure is not being done at this facility due to coronavirus and staffing restrictions PT/OT/ST Can have cardiac diet if he passes bedside swallow Every 4 hours neuro checks Permissive hypertension x48 hours or until stroke is ruled out which ever comes first, do not treat high blood pressure unless greater than 220/110 Carotid artery Doppler bilaterally to evaluate flow; no significant stenoses no marie Suspect patient will need SNF at discharge given debility 03/12/2020-no change in physical condition. PT OT on board. Blood pressure is running low 93/58 and he is on IV fluids normal saline 100 cc/h. Patient may need to go to a long-term care facility. Patient is still n.p.o. he failed sw allowing evaluation. He is going to have a modified barium swallow on Saturday. (2) T2DM (type 2 diabetes mellitus) Qualifiers: Diabetes mellitus mcc insulin use: without mcc use Diabetes mellitus complication status: with circulatory complication Diabetes mellitus complication detail: with other circulatory complications Qualified Code(s): E11.59 - Type 2 diabetes mellitus with other circulatory complications Is this a current diagnosis for this admission?: Yes Plan: Per patient, only takes metformin at home, hold this inpatient Accu-Cheks, slight scale insulin A1c 9.6, poorly controlled 03/12/2020-patient has history of type 2 diabetes mellitus on insulin sliding scale, hemoglobin A1c is 9.6. Dietary consult was requested. Latest hemoglobin is 151. (3) Rhabdomyolysis Is this a current diagnosis for this admission?: Yes Plan: Due to falling on floor and lying there for Appear to time CK on admission over 1000 IV fluids, can stop these if blood pressure begins rising abruptly and renal function is stable Trend BMP and monitor renal function closely CK downtrending 03/12/2020-patient admitted with rhabdomyolysis CK is more than thousand at the time of admission latest CK is 265. Improved. (4) Hypertension Qualifiers: Hypertension type: unspecified Qualified Code(s): I10 - Essential (primary) hypertension Is this a current diagnosis for this admission?: No Plan: Not on any meds for this at home per patient Unclear when patient actually had the stroke as he was found down at home May be safe to stop permissive hypertension given it may be over 48 hours already from the time he had his stroke Gradual blood pressure control can likely be safely started tomorrow 03/12/2020-patient is actually hypotensive and he is on normal saline 100 cc/h. Latest blood pressure is 106/90. Plan is to closely monitor the blood pressures.
[2020-03-12] MEDS: ASPIRIN 325 MG TABLET PO SCH (09:34)
[2020-03-12] MEDS: DOCUSATE SODIUM 100 MG CAPSULE PO SCH (09:34)
[2020-03-12] MEDS: ENOXAPARIN SODIUM INJ 40 MG/0.4 ML DISP.SYRIN SUBCUT SCH (11:16)
[2020-03-12] MEDS: ATORVASTATIN CALCIUM 40 MG TABLET PO SCH (21:11)
[2020-03-13] MEDS: INSULIN LISPRO 100 UNIT/ML 3 ML VIAL SUBCUT SCH ×4 (05:30→21:27)
[2020-03-13 06:12] LABS: ABSOLUTE EOSINOPHILS # (AUTO) 0.2 10^3/uL (0.0-0.6); ABSOLUTE LYMPHOCYTES (AUTO) 1.3 10^3/uL (0.5-4.7); ABSOLUTE MONOCYTES (AUTO) 0.4 10^3/uL (0.1-1.4); ABSOLUTE NEUT (AUTO) 4.9 10^3/uL (1.7-8.2); BASOPHILS % (AUTO) 0.5 % (0-2); HEMATOCRIT 41.4 % (37.9-51.0); HEMOGLOBIN 14.1 g/dL (13.5-17.0); LYMPHOCYTES % (AUTO) 18.9 % (13-45); MEAN CORPUSCULAR HEMOGLOBIN 28.3 pg (27.0-33.4); MEAN CORPUSCULAR HGB CONC 34.2 g/dL (32.0-36.0); MEAN CORPUSCULAR VOLUME 83 fl (80-97); MONOCYTES % (AUTO) 6.1 % (3-13); PLATELET COUNT 200 10^3/uL (150-450); RED CELL DISTRIBUTION WIDTH 14.7 % (11.5-14.0); SEGMENTED NEUTROPHILS % (AUTO) 71.5 % (42-78); TOTAL CELLS COUNTED % (AUTO) 100 %; WHITE BLOOD COUNT 6.8 10^3/uL (4.0-10.5)
[2020-03-13 06:33] LABS: ALBUMIN 3.1 g/dL (3.5-5.0); ALKALINE PHOSPHATASE 46 U/L (38-126); ASPARTATE AMINO TRANSFERASE 27 U/L (17-59); BILIRUBIN,TOTAL 0.6 mg/dL (0.2-1.3); BLOOD UREA NITROGEN 14 mg/dL (7-20); CALCIUM 8.3 mg/dL (8.4-10.2); CARBON DIOXIDE 30 mmol/L (22-30); CHLORIDE 103 mmol/L (98-107); GLUCOSE 122 mg/dL (75-110); POTASSIUM 3.5 mmol/L (3.6-5.0); TOTAL PROTEIN 6.1 g/dL (6.3-8.2)
[2020-03-13 06:47] LABS: ANION GAP 4 (5-19)
[2020-03-13] MEDS ORDERED: DEXTROSE 5%-1/2 NORMAL SALINE 1,000 ML IV PRN ×2 (07:50→10:00)
--- NOTE | 2020-03-13 07:51 | PDOC PROGRESS REPORT ---
Subjective Progress Note for:: 03/13/20 Subjective:: 69 year old male with past medical history as below who presented with a 2-day history of progressive right-sided numbness and weakness which began at his home on Saturday per patient, admitted on today. Per ED, NIH stroke scale score of 6 on admission. Patient states he does not take daily aspirin and is not on a statin. He denies any history of previous stroke. Patient was found down after a fall on his floor for an undetermined period of time, noted to be in rhabdomyolysis with CK over 1000 and negative troponin. Per patient, he has no known medical problems other than T2DM for which she takes only metformin. He is every day 1 to 2 pack/day smoker and has done so for many years. CTA head/neck did not show any significant acute findings that would necessitate transfer or prompt intervention from a neuroradiologist according to ED. CTA h ead did show focal plaque in the proximal cavernous right internal carotid artery with some narrowing but no occlusion. CTA neck showed a calcified mild plaque in the bilateral internal carotid arteries without stenoses. Multiple therapy modalities consulted on admission. Patient admitted for further work-up and evaluation of likely stroke. 03/11/20-Patient has unchanged neurologic symptoms today with complete paralysis of his right upper and lower extremities. He still has dysarthria and right facial droop. His MRI showed multiple small strokes bilaterally which raises suspicion of embolic source. His carotid arteries are patent and his echocardiogram did not show acute findings. I discussed all findings with patient in his room today. Otherwise, patient has no new complaints. 03/12/20-no acute events in the last 24 hrs, pt/ot on case.. needs snf placement 03/13/2020-no acute events in the last 24 hours. Patient is still n.p.o. waiting for the modified barium swallow tomorrow. Patient still have persistent right- sided weakness. He may need to go to a long-term care facility. Carotid Doppler is negative for high-grade stenosis echocardiogram with normal EF. Reason For Visit: ACUTE CVA Physical Exam Vital Signs: Temp Pulse Resp BP Pulse Ox 97.6 F 64 20 105/75 100 03/13/20 03:41 03/13/20 04:00 03/13/20 04:00 03/13/20 04:00 03/13/20 04:00 Intake & Output 03/12/20 03/13/20 03/14/20 06:59 06:59 06:59 Intake Total 1999 1960 Output Total 955 1325 Balance 1045 635 Weight 59.2 kg 59.1 kg General appearance: PRESENT: disheveled, thin Head exam: PRESENT: atraumatic Eye exam: PRESENT: PERRLA Mouth exam: PRESENT: moist, tongue midline Teeth exam: PRESENT: poor dentation Neck exam: ABSENT: carotid bruit, JVD, lymphadenopathy, thyromegaly Respiratory exam: PRESENT: decreased breath sounds Cardiovascular exam: PRESENT: RRR. ABSENT: diastolic murmur, rubs, systolic murmur GI/Abdominal exam: PRESENT: normal bowel sounds, soft. ABSENT: distended, guarding, mass, organolmegaly, rebound, tenderness Rectal exam: PRESENT: deferred Neurological exam: PRESENT: alert, altered, oriented to person, other - Patient has a right-sided hemiplegia. Psychiatric exam: PRESENT: appropriate affect, normal mood. ABSENT: homicidal ideation, suicidal ideation Results Laboratory Results: 03/13/20 05:29 03/13/20 05:29 03/13/20 03/13/20 05:29 05:29 WBC 6.8 RBC 5.00 Hgb 14.1 Hct 41.4 MCV 83 MCH 28.3 MCHC 34.2 RDW 14.7 H Plt Count 200 Seg Neutrophils % 71.5 Sodium 137.0 Potassium 3.5 L Chloride 103 Carbon Dioxide 30 Anion Gap 4 L BUN 14 Creatinine 0.56 Est GFR ( Amer) > 60 Glucose 122 H Calcium 8.3 L Magnesium 2.3 Total Bilirubin 0.6 AST 27 Alkaline Phosphatase 46 Total Protein 6.1 L Albumin 3.1 L 03/10/20 03/10/20 03/11/20 08:30 08:30 05:14 Creatine Kinase 1043 H 265 H CK-MB (CK-2) 7.15 H Troponin I < 0.012 Impressions: Carotid Doppler Study 03/10/20 00:00 IMPRESSION: NO HEMODYNAMICALLY SIGNIFICANT STENOSIS. Chest X-Ray 03/10/20 00:00 IMPRESSION: NO ACUTE RADIOGRAPHIC FINDING IN THE CHEST. Head CT 03/10/20 00:00 IMPRESSION: CHRONIC CHANGES OF ATROPHY AND MICROVASCULAR ISCHEMIA. NO ACUTE PROCESS. EVIDENCE OF ACUTE STROKE: NO. Head MRI 03/10/20 00:00 IMPRESSION: 1. Acute lacunar infarcts in the right frontoparietal white matter, bilateral basal ganglia, and cerebellar vermis. Given the bilaterality and multiplicity, these may be embolic in nature. 2. Chronic microvascular ischemic disease. Head CTA 03/10/20 08:43 IMPRESSION: FOCAL PLAQUE IN THE PROXIMAL CAVERNOUS RIGHT INTERNAL CAROTID ARTERY WITH LUMINAL NARROWING BUT NO OCCLUSION. NO CTA EVIDENCE OF STENOSIS OR ANEURYSM OF THE [place] OF [place]. Neck CTA 03/10/20 08:43 IMPRESSION: UNREMARKABLE CTA OF THE EXTRA-CRANIAL CAROTID AND VERTEBRAL ARTERIES. MILD CALCIFIED PLAQUE IN THE INTERNAL CAROTID ARTERIES WITH NO STENOSIS. Assessment and Plan - Diagnosis (1) Acute CVA (cerebrovascular accident) Is this a current diagnosis for this admission?: Yes Plan: 2-day history of progressive right upper and lower extremity weakness and dysarthria CTA head and neck showed bilateral carotid artery stenosis Aspirin statin started Echocardiogram showed normal systolic function with EF 65%, mild diastolic dysfunction, no thrombus but STANLEY is recommended Unable to get STANLEY as this procedure is not being done at this facility due to coronavirus and staffing restrictions PT/OT/ST Can have cardiac diet if he passes bedside swallow Every 4 hours neuro checks Permissive hypertension x48 hours or until stroke is ruled out which ever comes first, do not treat high blood pressure unless greater than 220/110 Carotid artery Doppler bilaterally to evaluate flow; no significant stenoses noted Suspect patient will need SNF at discharge given debility 03/12/2020-no change in physical condition. PT OT on board. Blood pressure is running low 93/58 and he is on IV fluids normal saline 100 cc/h. Patient may need to go to a long-term care facility. Patient is still n.p.o. he failed swallowing evaluation. He is going to have a modified barium swallow on Saturday. 03/13/2020-patient is comfortably in the bed. N.p.o. because he failed a swallowing evaluation. Going for modified barium swallow tomorrow. He has a right-sided hemiparesis. Physical therapy and occupational therapy working with the patient. Discharge plan is to refer him to SNF. (2) T2DM (type 2 diabetes mellitus) Qualifiers: Diabetes mellitus long-term insulin use: without long-term use Diabetes mellitus complication status: with circulatory complication Diabetes mellitus complication detail: with other circulatory complications Qualified Code(s): E11.59 - Type 2 diabetes mellitus with other circulatory complications Is this a current diagnosis for this admission?: Yes Plan: Per patient, only takes metformin at home, hold this inpatient Accu-Cheks, slight scale insulin A1c 9.6, poorly controlled 03/12/2020-patient has history of type 2 diabetes mellitus on insulin sliding scale, hemoglobin A1c is 9.6. Dietary consult was requested. Latest hemoglobin is 151. 03/13/2020-patient is n.p.o. at this moment because he failed swallowing evaluation. Latest blood sugar is 112. Hemoglobin A1c is 9.6. He is on insulin sliding scale every 6 hours. To prevent hypoglycemia Ringer lactate solution is changed to D5 half-normal. (3) Rhabdomyolysis Is this a current diagnosis for this admission?: Yes (4) Hypertension Qualifiers: Hypertension type: unspecified Qualified Code(s): I10 - Essential (primary) hypertension Is this a current diagnosis for this admission?: No Plan: Not on any meds for this at home per patient Unclear when patient actually had the stroke as he was found down at home May be safe to stop permissive hypertension given it may be over 48 hours already from the time he had his stroke Gradual blood pressure control can likely be safely started tomorrow 03/12/2020-patient is actually hypotensive and he is on Ringer lactate 100 cc/h. Latest blood pressure is 106/90. Plan is to closely monitor the blood pressures. 1220-patient's blood pressure today is 105/75. To continue D5 half-normal saline at 75 cc/h.
[2020-03-13] MEDS: DOCUSATE SODIUM 100 MG CAPSULE PO SCH (10:51)
[2020-03-13] MEDS: ENOXAPARIN SODIUM INJ 40 MG/0.4 ML DISP.SYRIN SUBCUT SCH (10:58)
[2020-03-13] MEDS: ASPIRIN 300 MG SUPP, RECTAL PR SCH (10:58)
[2020-03-13] MEDS: ASPIRIN 325 MG TABLET PO SCH (11:40)
[2020-03-13] MEDS: ATORVASTATIN CALCIUM 40 MG TABLET PO SCH (21:30)
[2020-03-14] MEDS: INSULIN LISPRO 100 UNIT/ML 3 ML VIAL SUBCUT SCH ×4 (08:34→21:33)
--- NOTE | 2020-03-14 08:45 | PDOC PROGRESS REPORT ---
Subjective Progress Note for:: 03/14/20 Subjective:: 69 year old male with past medical history as below who presented with a 2-day history of progressive right-sided numbness and weakness which began at his home on Saturday per patient, admitted on today. Per ED, NIH stroke scale score of 6 on admission. Patient states he does not take daily aspirin and is not on a statin. He denies any history of previous stroke. Patient was found down after a fall on his floor for an undetermined period of time, noted to be in rhabdomyolysis with CK over 1000 and negative troponin. Per patient, he has no known medical problems other than T2DM for which she takes only metformin. He is every day 1 to 2 pack/day smoker and has done so for many years. CTA head/neck did not show any significant acute findings that would necessitate transfer or prompt intervention from a neuroradiologist according to ED. CTA h ead did show focal plaque in the proximal cavernous right internal carotid artery with some narrowing but no occlusion. CTA neck showed a calcified mild plaque in the bilateral internal carotid arteries without stenoses. Multiple therapy modalities consulted on admission. Patient admitted for further work-up and evaluation of likely stroke. 03/11/20-Patient has unchanged neurologic symptoms today with complete paralysis of his right upper and lower extremities. He still has dysarthria and right facial droop. His MRI showed multiple small strokes bilaterally which raises suspicion of embolic source. His carotid arteries are patent and his echocardiogram did not show acute findings. I discussed all findings with patient in his room today. Otherwise, patient has no new complaints. 03/12/20-no acute events in the last 24 hrs, pt/ot on case.. needs snf placement 03/13/2020-no acute events in the last 24 hours. Patient is still n.p.o. waiting for the modified barium swallow tomorrow. Patient still have persistent right- sided weakness. He may need to go to a long-term care facility. Carotid Doppler is negative for high-grade stenosis echocardiogram with normal EF. 03/14/20-pt able to eat and iv fluids, patient is alert awake oriented. Still have right-sided weakness present. In the bed communicating well. Reason For Visit: ACUTE CVA Physical Exam Vital Signs: Temp Pulse Resp BP Pulse Ox 98.3 F 61 14 122/89 H 96 03/14/20 07:25 03/14/20 08:00 03/14/20 08:00 03/14/20 08:00 03/14/20 08:00 Intake & Output 03/13/20 03/14/20 03/15/20 06:59 06:59 06:59 Intake Total 1959 2024 Output Total 1325 2100 Balance 635 -75 Weight 59.1 kg 58.4 kg General appearance: PRESENT: no acute distress, cooperative, thin Head exam: PRESENT: atraumatic Eye exam: PRESENT: PERRLA Ear exam: PRESENT: normal external ear exam Mouth exam: PRESENT: neck supple Teeth exam: PRESENT: poor dentation Neck exam: ABSENT: carotid bruit, JVD, lymphadenopathy, thyromegaly Respiratory exam: PRESENT: decreased breath sounds Cardiovascular exam: PRESENT: RRR. ABSENT: diastolic murmur, rubs, systolic murmur GI/Abdominal exam: PRESENT: normal bowel sounds, soft. ABSENT: distended, guarding, mass, organolmegaly, rebound, tenderness Rectal exam: PRESENT: deferred Extremities exam: PRESENT: full ROM. ABSENT: calf tenderness, clubbing, pedal edema Neurological exam: PRESENT: alert, altered, oriented to person, oriented to place, oriented to time, other - Patient had a right-sided hemiplegia. ABSENT: CN II-XII grossly intact Psychiatric exam: PRESENT: appropriate affect, normal mood. ABSENT: homicidal ideation, suicidal ideation Results Laboratory Results: 03/13/20 05:29 03/13/20 05:29 03/10/20 03/10/20 03/11/20 08:30 08:30 05:14 Creatine Kinase 1043 H 265 H CK-MB (CK-2) 7.15 H Troponin I < 0.012 Impressions: Carotid Doppler Study 03/10/20 00:00 IMPRESSION: NO HEMODYNAMICALLY SIGNIFICANT STENOSIS. Chest X-Ray 03/10/20 00:00 IMPRESSION: NO ACUTE RADIOGRAPHIC FINDING IN THE CHEST. Head CT 03/10/20 00:00 IMPRESSION: CHRONIC CHANGES OF ATROPHY AND MICROVASCULAR ISCHEMIA. NO ACUTE PROCESS. EVIDENCE OF ACUTE STROKE: NO. Head MRI 03/10/20 00:00 IMPRESSION: 1. Acute lacunar infarcts in the right frontoparietal white matter, bilateral basal ganglia, and cerebellar vermis. Given the bilaterality and multiplicity, these may be embolic in nature. 2. Chronic microvascular ischemic disease. Head CTA 03/10/20 08:43 IMPRESSION: FOCAL PLAQUE IN THE PROXIMAL CAVERNOUS RIGHT INTERNAL CAROTID ARTERY WITH LUMINAL NARROWING BUT NO OCCLUSION. NO CTA EVIDENCE OF STENOSIS OR ANEURYSM OF THE [place]. Neck CTA 03/10/20 08:43 IMPRESSION: UNREMARKABLE CTA OF THE EXTRA-CRANIAL CAROTID AND VERTEBRAL ARTERIES. MILD CALCIFIED PLAQUE IN THE INTERNAL CAROTID ARTERIES WITH NO STENOSIS. Assessment and Plan - Diagnosis (1) Acute CVA (cerebrovascular accident) Is this a current diagnosis for this admission?: Yes Plan: 2-day history of progressive right upper and lower extremity weakness and dysarthria CTA head and neck showed bilateral carotid artery stenosis Aspirin statin started Echocardiogram showed normal systolic function with EF 65%, mild diastolic dysfunction, no thrombus but STANLEY is recommended Unable to get STANLEY as this procedure is not being done at this facility due to coronavirus and staffing restrictions PT/OT/ST Can have cardiac diet if he passes bedside swallow Every 4 hours neuro checks Permissive hypertension x48 hours or until stroke is ruled out which ever comes first, do not treat high blood pressure unless greater than 220/110 Carotid artery Doppler bilaterally to evaluate flow; no significant stenoses noted Suspect patient will need SNF at discharge given debility 03/12/2020-no change in physical condition. PT OT on board. Blood pressure is running low 93/58 and he is on IV fluids normal saline 100 cc/h. Patient may need to go to a long-term care facility. Patient is still n.p.o. he failed swallowing evaluation. He is going to have a modified barium swallow on Saturday. 03/13/2020-patient is comfortably in the bed. N.p.o. because he failed a swallowing evaluation. Going for modified barium swallow tomorrow. He has a right-sided hemiparesis. Physical therapy and occupational therapy working with the patient. Discharge plan is to refer him to SNF 03/14/20-on regular diet now able to tolerate the diet without any problems. Physical therapy is working with the patient. OT consult was requested. Patient made to go to a long-term care facility. (2) T2DM (type 2 diabetes mellitus) Qualifiers: Diabetes mellitus group home insulin use: without termite inspector use Diabetes mellitus complication status: with circulatory complication Diabetes mellitus complication detail: with other circulatory complications Qualified Code(s): E11.59 - Type 2 diabetes mellitus with other circulatory complications Is this a current diagnosis for this admission?: No Plan: Per patient, only takes metformin at home, hold this inpatient Accu-Cheks, slight scale insulin A1c 9.6, poorly controlled 03/12/2020-patient has history of type 2 diabetes mellitus on insulin sliding scale, hemoglobin A1c is 9.6. Dietary consult was requested. Latest hemoglobin is 151. 03/13/2020-patient is n.p.o. at this moment because he failed swallowing evaluation. Latest blood sugar is 112. Hemoglobin A1c is 9.6. He is on ins ulin sliding scale every 6 hours. To prevent hypoglycemia Ringer lactate solution is changed to D5 half-normal. 03/14/2020-patient is on diabetic diet now and IV fluids are discontinued. Latest blood sugar is 159. Hemoglobin A1c 6.9. Plan is to change insulin sliding scale to before meals and at bedtime. (3) Rhabdomyolysis Is this a current diagnosis for this admission?: Yes Plan: Due to falling on floor and lying there for Appear to time CK on admission over 1000 IV fluids, can stop these if blood pressure begins rising abruptly and renal function is stable Trend BMP and monitor renal function closely CK downtrending 03/12/2020-patient admitted with rhabdomyolysis CK is more than thousand at the time of admission latest CK is 265. Improved. (4) Hypertension Qualifiers: Hypertension type: unspecified Qualified Code(s): I10 - Essential (primary) hypertension Is this a current diagnosis for this admission?: No Plan: Not on any meds for this at home per patient Unclear when patient actually had the stroke as he was found down at home May be safe to stop permissive hypertension given it may be over 48 hours already from the time he had his stroke Gradual blood pressure control can likely be safely started tomorrow 03/12/2020-patient is actually hypotensive and he is on Ringer lactate 100 cc/h. Latest blood pressure is 106/90. Plan is to closely monitor the blood pr essures. 03/13/20-patient's blood pressure today is 105/75. To continue D5 half-normal saline at 75 cc/h.
--- NOTE | 2020-03-14 09:37 | RADIOLOGY REPORT (SQ) ---
EXAM DESCRIPTION: COOKIE SWALLOW IMAGES COMPLETED DATE/TIME: 03/14/2020 8:51 am REASON FOR STUDY: CVA, failed bedside swallow examination COMPARISON: None. TECHNIQUE: Videofluoroscopic swallowing examination was performed in conjunction with speech patholo gy. Videofluoroscopic imaging was obtained and reviewed and these are the findings: RADIATION DOSE: 3 minutes 7 seconds of fluoroscopy was used. 1 images saved to PACS. LIMITATIONS: None FINDINGS: The patient was brought into the fluoro room and placed upright on a modified barium swall ow chair. The patient was then given multiple consistencies mixed with barium to swallow under live fluoroscopic video guidance. According to the Speech Pathologist there was laryngeal penetration and aspiration of thin and nectar thick liquids. Trace laryngeal penetration with honey thick liquids. Post swallow residual contrast within the vallecular and piriform sinuses. IMPRESSION: LARYNGEAL PENETRATION AND ASPIRATION ABOVE. PLEASE SEE SPEECH PATHOLOGIST REPORT FOR OTHER FINDINGS AND RECOMMENDATIONS. COMMENT: Quality ID [id number]: Final reports for procedures using fluoroscopy that document radiation exp osure indices, or exposure time and number of fluorographic images (if radiation exposure indices are not available) TECHNICAL DOCUMENTATION: JOB ID: [id number] [email or web address]- All Rights Reserved Reading location - IP/workstation name: [email or web address] [id number]
[2020-03-14] MEDS: DOCUSATE SODIUM 100 MG CAPSULE PO SCH (09:43)
[2020-03-14] MEDS: ENOXAPARIN SODIUM INJ 40 MG/0.4 ML DISP.SYRIN SUBCUT SCH (09:44)
[2020-03-14] MEDS: ASPIRIN 300 MG SUPP, RECTAL PR SCH (09:44)
--- NOTE | 2020-03-14 09:57 | ST Inp Modified Barium Swallow ---
Medical Diagnosis - Medical Diagnoses Medical Diagnosis Description & ICD-10 Code(s): Acute CVA, dysphagia - ICD-10 Tx Diagnosis Coding (1) Dysphagia ICD-10 Code(s): R13.10 - DYSPHAGIA, UNSPECIFIED (2) Acute CVA (cerebrovascular accident) ICD-10 Code(s): I63.9 - CEREBRAL INFARCTION, UNSPECIFIED ST Inpatient MBS - General Date: 03/14/20 Date of Onset: 03/10/20 - History -: Medical - Pt. is a 69 yo male presenting to ED 03/10/2020 with two days of progressive R sided numbness. PMHx of type 2 diabetes, tobacco abuse, and hypertension. Initial head CT negative, subsequent MRI revealed "acute lacunar infarcts in R frontoparietal white matter, bilateral basal ganglia, and cerebellar vermis." No acute finding in chest CT. Pt. denies history of PNA or unexpected/unexplained weight loss. Patient failed initial nursing swallow screen due to coughing. At bedside clinical evaluation, speech therapist noted overt signs of aspiration with thin and nectar thick liquids, recommended patient remain NPO until MBSS could be completed. Medications: Medications Reviewed Allergies: No known allergies - Subjective Current Nutritional Means: PO Current PO Diet: Pureed, Thickened liquids - nectar Current Symptoms: Coughing Pain: Patient reports, 0/5 - Objective Assessment: Upright, Left Lateral - Food Trials Food Trials Used: Thin liquids, Honey-thickened liquids, [place] thick liquids, Pureed, Regular The Patient: Was Able to Self Feed - Assessment Labial Function: Impaired - reduced seal Lingual Function: Within Functional Limits Mandibular Function: Within Functional Limits Dentition: Partial Velo-Pharyngeal Function: Unremarkable Laryngeal Function: Weak Cough - Pharyngeal Stage Initiation of Pharyngeal Stage: Delayed - bolus fully in pharynx prior to pharyngeal swallow initiation Decreased Laryngeal Elevation: Yes - mild Reduced Velo-Pharyngeal Closure: no Reduced Pressure Generation: Yes Pre-Swallowing Pooling in Valleculae: Mild Pre-Swallowing Pooling in Pyriforms: None Reduced Thyro-Hyiod Approximation: Yes - mild Reduced Epiglottic Excursion: Yes - mild to moderate Reduced Pharyngeal Peristalsis: No Multiple Swallows With: Effective - cleared after multiple dry swallows Post Swallow Residuals in Valleculae: Moderate Post Swallow Residuals in Pyriforms: Mild Pahryngeal Stage Comments: Timing of the swallow off, meaning that the airway was remaining open when the bolus entered the pharynx, able to eventually close effectively but not in time to prevent aspiration of the bolus for thin liquids and nectar liquids. Weak elevation and constriction also seen. - Esophageal Stage Cricophageal Function: Normal - Impression/Summary Laryngeal Penetration: Yes - penetration of thin liquid, nectar liquid, and honey thick liquid. Penetration trace with honey. Tracheal Aspiration: yes - Chris aspiration on the swallow with thin liquid and nectar liquid. Delayed cough reflex seen (2-3 seconds after aspiration occured). Productive Cough: No - attempted cued cough, weak Effective Clearing: no Patient Presents With: Pharyngeal stage dysph., Severe Risk of Aspiration: Severe - Recommendations Solid Diet Recommendations: Pureed Liquid Diet Recommendations: Honey-Thick Strict Aspitarion Precautions: Yes Dysphagia Therapy with MEDICAL ADMINISTRATIVE TECHNICIAN: Yes Recommended Techniques: Fully Upright During Meal, Alternate Bites/Sips Supervision: Distant Other Recommendations: Recommend honey thick liquids and puree solids, medications crushed, due to mild to moderate pharyngeal weakness and inefficient timing of the swallow reflex. Patient would also benefit from dysphagia therapy to address underlying physiological causes of dysphagia. Recommendations relayed to physician and nursing. Plan to follow patient in the hospital 2x per week for dysphagia treatment. Goals to include: Patient will demonstrate completion of effortful swallow with min cues x5. Patient will demonstrate understanding of aspiration precautions. - Time Total Time: 30 Total Timed Minutes: 30
[2020-03-14] MEDS: ATORVASTATIN CALCIUM 40 MG TABLET PO SCH (21:33)
[2020-03-15 05:12] LABS: ABSOLUTE BASOPHILS # (AUTO) 0.1 10^3/uL (0.0-0.2); ABSOLUTE EOSINOPHILS # (AUTO) 0.2 10^3/uL (0.0-0.6); ABSOLUTE LYMPHOCYTES (AUTO) 1.9 10^3/uL (0.5-4.7); ABSOLUTE MONOCYTES (AUTO) 0.5 10^3/uL (0.1-1.4); ABSOLUTE NEUT (AUTO) 3.1 10^3/uL (1.7-8.2); BASOPHILS % (AUTO) 1.1 % (0-2); EOSINOPHILS % (AUTO) 4.2 % (0-6); HEMATOCRIT 40.4 % (37.9-51.0); HEMOGLOBIN 14.3 g/dL (13.5-17.0); LYMPHOCYTES % (AUTO) 32.4 % (13-45); MEAN CORPUSCULAR HEMOGLOBIN 28.7 pg (27.0-33.4); MEAN CORPUSCULAR HGB CONC 35.5 g/dL (32.0-36.0); MEAN CORPUSCULAR VOLUME 81 fl (80-97); MONOCYTES % (AUTO) 8.1 % (3-13); PLATELET COUNT 216 10^3/uL (150-450); RED BLOOD COUNT 4.99 10^6/uL (4.35-5.55); RED CELL DISTRIBUTION WIDTH 14.6 % (11.5-14.0); SEGMENTED NEUTROPHILS % (AUTO) 54.2 % (42-78); TOTAL CELLS COUNTED % (AUTO) 100 %; WHITE BLOOD COUNT 5.8 10^3/uL (4.0-10.5)
[2020-03-15 05:33] LABS: ALKALINE PHOSPHATASE 49 U/L (38-126); ASPARTATE AMINO TRANSFERASE 28 U/L (17-59); BILIRUBIN,TOTAL 0.5 mg/dL (0.2-1.3); BLOOD UREA NITROGEN 17 mg/dL (7-20); CALCIUM 8.5 mg/dL (8.4-10.2); GLUCOSE 195 mg/dL (75-110); POTASSIUM 3.9 mmol/L (3.6-5.0); TOTAL PROTEIN 5.8 g/dL (6.3-8.2)
[2020-03-15 05:38] LABS: CARBON DIOXIDE 29 mmol/L (22-30); CHLORIDE 106 mmol/L (98-107)
[2020-03-15 05:40] LABS: ANION GAP 2 (5-19)
[2020-03-15] MEDS: DOCUSATE SODIUM 100 MG CAPSULE PO SCH (11:06)
[2020-03-15] MEDS: ENOXAPARIN SODIUM INJ 40 MG/0.4 ML DISP.SYRIN SUBCUT SCH (11:10)
[2020-03-15] MEDS: ASPIRIN 300 MG SUPP, RECTAL PR SCH (11:33)
[2020-03-15] MEDS: INSULIN LISPRO 100 UNIT/ML 3 ML VIAL SUBCUT SCH ×4 (12:02→21:28)
[2020-03-15] MEDS ORDERED: DEXTROSE 5%-1/2 NORMAL SALINE 1,000 ML IV PRN (17:29)
--- NOTE | 2020-03-15 17:37 | PDOC PROGRESS REPORT ---
Subjective Progress Note for:: 03/15/20 Reason For Visit: ACUTE CVA 03/15/2020 Left hemisphere CVA, rhabdomyolysis Physical Exam Vital Signs: Temp Pulse Resp BP Pulse Ox 98.1 F 59 L 18 93/61 L 96 03/15/20 11:56 03/15/20 14:00 03/15/20 12:00 03/15/20 12:00 03/15/20 12:00 Intake & Output 03/14/20 03/15/20 03/16/20 06:59 06:59 06:59 Intake Total 2024 240 114 Output Total 2099 1300 250 Balance -75 -1060 -136 Weight 58.4 kg 58.4 kg General appearance: PRESENT: no acute distress, other - Dense right hemiparesis Respiratory exam: PRESENT: clear to auscultation aldair. ABSENT: rales, rhonchi, wheezes Cardiovascular exam: PRESENT: RRR. ABSENT: diastolic murmur, rubs, systolic murmur Neurological exam: PRESENT: alert, awake, oriented to person, oriented to place, oriented to time, oriented to situation, motor sensory deficit - Right upper and lower extremity paralysis. No facial involvement Psychiatric exam: PRESENT: appropriate affect, normal mood. ABSENT: homicidal ideation, suicidal ideation Results Laboratory Results: 03/15/20 04:56 03/15/20 04:56 03/15/20 03/15/20 04:56 04:56 WBC 5.8 RBC 4.99 Hgb 14.3 Hct 40.4 MCV 81 MCH 28.7 MCHC 35.5 RDW 14.6 H Plt Count 216 Seg Neutrophils % 54.2 Sodium 137.1 Potassium 3.9 Chloride 106 Carbon Dioxide 29 Anion Gap 2 L BUN 17 Creatinine 0.55 Est GFR ( Amer) > 60 Glucose 195 H Calcium 8.5 Magnesium 2.3 Total Bilirubin 0.5 AST 28 Alkaline Phosphatase 49 Total Protein 5.8 L Albumin 3.0 L 03/10/20 03/10/20 03/11/20 08:30 08:30 05:14 Creatine Kinase 1043 H 265 H CK-MB (CK-2) 7.15 H Troponin I < 0.012 Impressions: Carotid Doppler Study 03/10/20 00:00 IMPRESSION: NO HEMODYNAMICALLY SIGNIFICANT STENOSIS. Chest X-Ray 03/10/20 00:00 IMPRESSION: NO ACUTE RADIOGRAPHIC FINDING IN THE CHEST. Head CT 03/10/20 00:00 IMPRESSION: CHRONIC CHANGES OF ATROPHY AND MICROVASCULAR ISCHEMIA. NO ACUTE PROCESS. EVIDENCE OF ACUTE STROKE: NO. Head MRI 03/10/20 00:00 IMPRESSION: 1. Acute lacunar infarcts in the right frontoparietal white matter, bilateral basal ganglia, and cerebellar vermis. Given the bilaterality and multiplicity, these may be embolic in nature. 2. Chronic microvascular ischemic disease. Head CTA 03/10/20 08:43 IMPRESSION: FOCAL PLAQUE IN THE PROXIMAL CAVERNOUS RIGHT INTERNAL CAROTID ARTERY WITH LUMINAL NARROWING BUT NO OCCLUSION. NO CTA EVIDENCE OF STENOSIS OR ANEURYSM OF THE [place]. Neck CTA 03/10/20 08:43 IMPRESSION: UNREMARKABLE CTA OF THE EXTRA-CRANIAL CAROTID AND VERTEBRAL ARTERIES. MILD CALCIFIED PLAQUE IN THE INTERNAL CAROTID ARTERIES WITH NO STENOSIS. Modified Barium Swallow 03/14/20 00:01 IMPRESSION: LARYNGEAL PENETRATION AND ASPIRATION ABOVE. PLEASE SEE SPEECH PATHOLOGIST REPORT FOR OTHER FINDINGS AND RECOMMENDATIONS. Assessment and Plan - Diagnosis (1) Acute CVA (cerebrovascular accident) Is this a current diagnosis for this admission?: Yes (2) Dysphagia Is this a current diagnosis for this admission?: Yes (3) Rhabdomyolysis Is this a current diagnosis for this admission?: Yes (4) T2DM (type 2 diabetes mellitus) Qualifiers: Diabetes mellitus termite control technician insulin use: without group home use Diabetes mellitus complication status: with circulatory complication Diabetes mellitus complication detail: with other circulatory complications Qualified Code(s): E11.59 - Type 2 diabetes mellitus with other circulatory complications Is this a current diagnosis for this admission?: Yes (5) Tobacco abuse Is this a current diagnosis for this admission?: Yes - Plan Summary Summary: 03/15/2020 Vital signs temperature 98.2 pulse between 50 and 60 blood pressure 103/68 On admission blood pressure was slightly elevated 179/83. However for the last 5 days blood pressure has been running rather low Patient is on no medication to keep his blood pressure low, in fact am going to resume his fluids to try to get his blood pressure up, to ensure cerebral perfusion Patient is taking 1 aspirin daily Patient was supposed to be taking metformin at home although this is not documented. Glucose levels are still running high. Going to resume start him on metformin 500 twice daily, this will probably have to go up to thousand twice daily Patient answers questions appropriately, follows commands with the left side of his body. No evidence of facial weakness Speech therapy recommended soft pures such as applesauce or pudding, small bites Also honey thickened liquids - Time Time Spent with patient: 25-34 minutes
[2020-03-15] MEDS: METFORMIN HCL 500 MG TABLET PO SCH (18:00)
[2020-03-15] MEDS: NORMAL SALINE 1000 ML 1,000 ML IV PRN (18:01)
[2020-03-15] MEDS: ATORVASTATIN CALCIUM 40 MG TABLET PO SCH (21:28)
[2020-03-16] MEDS: NORMAL SALINE 1000 ML 1,000 ML IV PRN (05:42)
[2020-03-16] MEDS: INSULIN LISPRO 100 UNIT/ML 3 ML VIAL SUBCUT SCH ×2 (08:35→11:50)
[2020-03-16] MEDS: METFORMIN HCL 500 MG TABLET PO SCH (08:40)
[2020-03-16] MEDS ORDERED: ASPIRIN 325 MG TABLET PO SCH (10:00)
[2020-03-16] MEDS: DOCUSATE SODIUM 100 MG CAPSULE PO SCH (10:25)
[2020-03-16] MEDS: ENOXAPARIN SODIUM INJ 40 MG/0.4 ML DISP.SYRIN SUBCUT SCH (10:26)
--- NOTE | 2020-03-16 11:26 | PDOC TRANSFER SUMMARY ---
Impression - Admit/DC Date/PCP Admission Date/Primary Care Provider: 03/10/20 10:58 Discharge Date: 03/16/20 - Discharge Diagnosis (1) Acute CVA (cerebrovascular accident) Is this a current diagnosis for this admission?: Yes (2) Dysphagia Is this a current diagnosis for this admission?: Yes (3) Rhabdomyolysis Is this a current diagnosis for this admission?: Yes (4) T2DM (type 2 diabetes mellitus) Is this a current diagnosis for this admission?: Yes (5) Tobacco abuse Is this a current diagnosis for this admission?: Yes - Assessment Summary: 03/15/2020 Vital signs temperature 98.2 pulse between 50 and 60 blood pressure 103/68 On admission blood pressure was slightly elevated 179/83. However for the last 5 days blood pressure has been running rather low Patient is on no medication to keep his blood pressure low, in fact am going to resume his fluids to try to get his blood pressure up, to ensure cerebral perfusion Patient is taking 1 aspirin daily Patient was supposed to be taking metformin at home although this is not documented. Glucose levels are still running high. Going to resume start him on metformin 500 twice daily, this will probably have to go up to thousand twice daily Patient answers questions appropriately, follows commands with the left side of his body. No evidence of facial weakness Speech therapy recommended soft pures such as applesauce or pudding, small bit es Also honey thickened liquids 03/16/2020 Patient was admitted on 10 March for 2-day history of progressive right-sided numbness and weakness. He denies any previous stroke. Patient was found down at home for an undetermined amount of time and was noted to be in rhabdomyolysis with a CK over 1000 and negative troponins. Patient was supposedly taking metformin and smoking 1 to 2 packs/day of cigarettes. CTA of the head and neck did not show any significant acute findings. There was some plaque formation but no significant stenosis MRI of the brain showed acute lacunar infarcts in the right frontoparietal white matter with bilateral basal ganglia and cerebellar vermis. This appeared to be possibly embolic in nature and also chronic microvascular ischemic disease. While in the hospital patient was started on aspirin 325 a day and Lipitor 40 mg daily. She was put on a sliding scale of insulin and his metformin was resumed at 500 mg twice daily. This may need to be increased to thousand twice daily Labs on admission his white count was 10,800 hemoglobin 16.1 at the time of discharge white count is 5.8 and hemoglobin is 14.3 platelets 216,000 INR of 1.14 Chemistry showed a sodium 137 potassium 3.9 BUN is 17 creatinine 0.55 most recent fingerstick glucose 245 Hemoglobin A1c on admission was 9.6 CK came down within 24 hours to 265 While in the hospital patient has been seen by speech therapy who found evidence of possible aspiration and recommended soft pure such as applesauce and pudding with small bites and for liquids recommended honey thickened liquids Patient will need to have his blood sugars checked patient will need to stay on his daily aspirin Patient has been seen by physical therapy as well and they recommended continuing physical therapy for right-sided hemiparesis. The time of discharge patient still is unable to lift his right arm or right leg against gravity. Patient has no facial droop or weakness Patient is medically stable for transfer to rehab for continued physical therapy, speech therapy, as well as occupational therapy Patient will need follow-up with his primary care as well as neurology - Additional Information Resuscitation Status: Full Code Discharge Diet: Diabetic Discharge Activity: Activity As Tolerated, Other - Will need physical therapy speech therapy and Occupational Therapy Prescriptions: Metformin HCl [Glucophage 500 mg Tablet] 500 mg PO BIDACBS 30 Days #60 tablet Atorvastatin Calcium [Lipitor 40 mg Tablet] 40 mg PO QHS 30 Days #30 tablet Home Medications: Acetaminophen [Tylenol 325 mg Tablet] 650 mg PO Q4HP PRN tablet 03/16/20 Aspirin [Aspirin 325 mg Tablet] 325 mg PO DAILY tablet 03/16/20 Atorvastatin Calcium [Lipitor 40 mg Tablet] 40 mg PO QHS 30 Days #30 tablet 03/16/20 Docusate Sodium [Colace 100 mg Capsule] 100 mg PO DAILY capsule 03/16/20 Metformin HCl [Glucophage 500 mg Tablet] 500 mg PO BIDACBS 30 Days #60 tablet 03/16/20 History of Present Illiness History of Present Illness: REN GARCIA is a 69 year old male Physical Exam Vital Signs: Temp Pulse Resp BP Pulse Ox 98.1 F 66 18 120/71 94 03/16/20 08:04 03/16/20 08:04 03/16/20 08:04 03/16/20 08:04 03/16/20 08:04 Intake & Output 03/15/20 03/16/20 03/17/20 06:59 06:59 06:59 Intake Total 240 1452 Output Total 1300 900 Balance -1060 552 Weight 58.4 kg 58 kg Results Laboratory Results: WBC 5.8 10^3/uL (4.0-10.5) 03/15/20 04:56 RBC 4.99 10^6/uL (4.35-5.55) 03/15/20 04:56 Hgb 14.3 g/dL (13.5-17.0) 03/15/20 04:56 Hct 40.4 % (37.9-51.0) 03/15/20 04:56 MCV 81 fl (80-97) 03/15/20 04:56 MCH 28.7 pg (27.0-33.4) 03/15/20 04:56 MCHC 35.5 g/dL (32.0-36.0) 03/15/20 04:56 RDW 14.6 % (11.5-14.0) H 03/15/20 04:56 Plt Count 216 10^3/uL (150-450) 03/15/20 04:56 Lymph % (Auto) 32.4 % (13-45) 03/15/20 04:56 [place] % (Auto) 8.1 % (3-13) 03/15/20 04:56 Eos % (Auto) 4.2 % (0-6) 03/15/20 04:56 Baso % (Auto) 1.1 % (0-2) 03/15/20 04:56 Absolute Neuts (auto) 3.1 10^3/uL (1.7-8.2) 03/15/20 04:56 Absolute Lymphs (auto) 1.9 10^3/uL (0.5-4.7) 03/15/20 04:56 Absolute Monos (auto) 0.5 10^3/uL (0.1-1.4) 03/15/20 04:56 Absolute Eos (auto) 0.2 10^3/uL (0.0-0.6) 03/15/20 04:56 Absolute Basos (auto) 0.1 10^3/uL (0.0-0.2) 03/15/20 04:56 Seg Neutrophils % 54.2 % (42-78) 03/15/20 04:56 PT 14.7 SEC (11.4-15.4) 03/10/20 08:30 INR 1.14 03/10/20 08:30 APTT 34.9 SEC (23.5-35.8) 03/10/20 08:30 Sodium 137.1 mmol/L (137-145) 03/15/20 04:56 Potassium 3.9 mmol/L (3.6-5.0) 03/15/20 04:56 Chloride 106 mmol/L (98-107) 03/15/20 04:56 Carbon Dioxide 29 mmol/L (22-30) 03/15/20 04:56 Anion Gap 2 (5-19) L 03/15/20 04:56 BUN 17 mg/dL (7-20) 03/15/20 04:56 Creatinine 0.55 mg/dL (0.52-1.25) 03/15/20 04:56 Est GFR ( Amer) > 60 (>60) 03/15/20 04:56 Est GFR (MDRD) Non-Af > 60 (>60) 03/15/20 04:56 Glucose 195 mg/dL (75-110) H 03/15/20 04:56 POC Glucose 245 mg/dL (70-110) H 03/16/20 08:04 Hemoglobin A1c % 9.6 % (4.7-6.0) H 03/11/20 05:14 Calcium 8.5 mg/dL (8.4-10.2) 03/15/20 04:56 Phosphorus 3.4 mg/dL (2.5-4.5) 03/11/20 05:14 Magnesium 2.3 mg/dL (1.6-2.3) 03/15/20 04:56 Total Bilirubin 0.5 mg/dL (0.2-1.3) 03/15/20 04:56 Direct Bilirubin 0.0 mg/dL (0.0-0.4) 03/15/20 04:56 Neonat Total Bilirubin Not Reportable 03/15/20 04:56 Neonat Direct Bilirubin Not Reportable 03/15/20 04:56 Neonat Indirect Bili Not Reportable 03/15/20 04:56 AST 28 U/L (17-59) 03/15/20 04:56 ALT 23 U/L (<50) 03/15/20 04:56 Alkaline Phosphatase 49 U/L (38-126) 03/15/20 04:56 Creatine Kinase 265 U/L (55-170) H 03/11/20 05:14 CK-MB (CK-2) 7.15 ng/mL (<4.55) H 03/10/20 08:30 Troponin I < 0.012 ng/mL 03/10/20 08:30 Total Protein 5.8 g/dL (6.3-8.2) L 03/15/20 04:56 Albumin 3.0 g/dL (3.5-5.0) L 03/15/20 04:56 Triglycerides 86 mg/dL (<150) 03/11/20 05:14 Cholesterol 122.46 mg/dL (0-200) 03/11/20 05:14 LDL Cholesterol Direct 86 mg/dL (<100) 03/11/20 05:14 VLDL Cholesterol 17.0 mg/dL (10-31) 03/11/20 05:14 HDL Cholesterol 32 mg/dL (>40) L 03/11/20 05:14 TSH 0.38 uIU/mL (0.47-4.68) L 03/11/20 05:14 Free T4 1.11 ng/dL (0.78-2.19) 03/11/20 05:14 Urine Color YELLOW 03/11/20 11:08 Urine Appearance SLIGHTLY-CLOUDY 03/11/20 11:08 Urine pH 5.0 (5.0-9.0) 03/11/20 11:08 Ur Specific [place] 1.036 03/11/20 11:08 Urine Protein 30 mg/dL (NEGATIVE) H 03/11/20 11:08 Urine Glucose (UA) >=500 mg/dL (NEGATIVE) H 03/11/20 11:08 Urine Ketones 80 mg/dL (NEGATIVE) H 03/11/20 11:08 Urine Blood NEGATIVE (NEGATIVE) 03/11/20 11:08 Urine Nitrite NEGATIVE (NEGATIVE) 03/11/20 11:08 Urine Bilirubin NEGATIVE (NEGATIVE) 03/11/20 11:08 Urine Urobilinogen NEGATIVE mg/dL (<2.0) 03/11/20 11:08 Ur Leukocyte Esterase NEGATIVE (NEGATIVE) 03/11/20 11:08 Urine WBC (Auto) 1 /HPF 03/11/20 11:08 Urine RBC (Auto) 1 /HPF 03/11/20 11:08 Urine Bacteria (Auto) TRACE /HPF 03/11/20 11:08 Squamous Epi Cells Auto <1 /HPF 03/11/20 11:08 Urine Mucus (Auto) FEW /LPF 03/11/20 11:08 Urine Ascorbic Acid NEGATIVE (NEGATIVE) 03/11/20 11:08 03/10/20 08:30 CK-MB (CK-2) 7.15 H Troponin I < 0.012 Impressions: Carotid Doppler Study 03/10/20 00:00 IMPRESSION: NO HEMODYNAMICALLY SIGNIFICANT STENOSIS. Chest X-Ray 03/10/20 00:00 IMPRESSION: NO ACUTE RADIOGRAPHIC FINDING IN THE CHEST. Head CT 03/10/20 00:00 IMPRESSION: CHRONIC CHANGES OF ATROPHY AND MICROVASCULAR ISCHEMIA. NO ACUTE PROCESS. EVIDENCE OF ACUTE STROKE: NO. Head MRI 03/10/20 00:00 IMPRESSION: 1. Acute lacunar infarcts in the right frontoparietal white matter, bilateral basal ganglia, and cerebellar vermis. Given the bilaterality and multiplicity, these may be embolic in nature. 2. Chronic microvascular ischemic disease. Head CTA 03/10/20 08:43 IMPRESSION: FOCAL PLAQUE IN THE PROXIMAL CAVERNOUS RIGHT INTERNAL CAROTID ARTERY WITH LUMINAL NARROWING BUT NO OCCLUSION. NO CTA EVIDENCE OF STENOSIS OR ANEURYSM OF THE [place] OF [place]. Neck CTA 03/10/20 08:43 IMPRESSION: UNREMARKABLE CTA OF THE EXTRA-CRANIAL CAROTID AND VERTEBRAL ARTERIES. MILD CALCIFIED PLAQUE IN THE INTERNAL CAROTID ARTERIES WITH NO STENOSIS. Modified Barium Swallow 03/14/20 00:01 IMPRESSION: LARYNGEAL PENETRATION AND ASPIRATION ABOVE. PLEASE SEE SPEECH PATHOLOGIST REPORT FOR OTHER FINDINGS AND RECOMMENDATIONS. Stroke Is this a Stroke Patient?: Yes Stroke Pt being discharged on Anti-thrombolytic therapy?: No Reason(s) for not prescribing Anti-thrombolytic therapy:: Not indicated Stroke Pt being discharged on Anti-coagulation therapy?: Yes Stroke Pt being discharged on Statins?: Yes Acute Heart Failure - Is this a Heart Failure Patient?: No
[2020-03-16 11:30] VITALS: BP 100/75
== END 2020-03-16 14:51 | DRG 65 ==
LOC: ER 08:12 → EH 10:58 → 3S 12:29
PROVIDERS: ADMIT Internal Medicine; ATTEND Physician Assistant
DX: I63.81 Other cerebral infarction due to occlusion or stenosis of small artery (principal); M62.82 Rhabdomyolysis; G81.91 Hemiplegia, unspecified affecting right dominant side; E11.9 Type 2 diabetes mellitus without complications; R29.810 Facial weakness; F17.210 Nicotine dependence, cigarettes, uncomplicated; Z79.84 Long term (current) use of oral hypoglycemic drugs; R47.1 Dysarthria and anarthria; I10 Essential (primary) hypertension; R47.81 Slurred speech; Z91.81 History of falling; Z79.82 Long term (current) use of aspirin
CPT/HCPCS: 36415; 70450; 70496; 70498; 70551; 71045; 74230; 80048; 80053; 80061; 80076; 81001; 82550; 82553; 82962; 83036; 83735; 84100; 84439; 84443; 84484; 85025; 85610; 85730; 93005; 93010; 93306; 93880; 99285; J1650; J1815; J3490; J7030; J7120